=== PATIENT | female | born 1985 | race Two or more races ===

== ENCOUNTER 2020-09-26 15:17 | Outpatient (REF) | payer OTHER, SELFPAY ==
--- NOTE | ~2020-09-26 | XR_ITS ---
EXAMINATION: XR SHOULDER, RIGHT CLINICAL INFORMATION: Pain in right shoulder COMPARISON: None TECHNIQUE: 3 views of the right shoulder of the right shoulder. FINDINGS: There is no evidence of acute fracture or dislocation of the right shoulder. No calcific tendinitis. Glenohumeral joint unremarkable. Acromioclavicular joint unremarkable. No widening of the coracoclavicular space. XR/XR shoulder RT min 2V IMPRESSION: No significant bony abnormality of the right shoulder.
== END 2020-09-26 15:18 | disposition home or self-care (01) ==
LOC: HO.HMGCX 15:17
PROVIDERS: PCP Internal Medicine; Visit Provider Nurse Practitioner Family
DX: M25.519 Pain in unspecified shoulder (principal)
CPT/HCPCS: 73030

== ENCOUNTER 2020-12-15 13:43 | Outpatient (REF) | payer OTHER, SELFPAY ==
--- NOTE | ~2020-12-15 | XR_ITS ---
EXAMINATION: XR ANKLE, RIGHT CLINICAL INFORMATION: Right ankle pain/sprain COMPARISON: 02/19/2017 and 01/07/2020 TECHNIQUE: AP, lateral, and mortise views of the right ankle. FINDINGS: Bones have normal alignment and joint spaces are maintained. Soft tissues are unremarkable. No evidence of ankle joint effusion. No acute fracture or malalignment. There is a prominent Stieda process of the posterior talus. XR/XR ankle RT min 3V IMPRESSION: No acute osseous injury at the right ankle.
== END 2020-12-15 13:44 | disposition home or self-care (01) ==
LOC: HO.HMGCX 13:43
PROVIDERS: PCP Internal Medicine; Visit Provider Internal Medicine
DX: S93.401A Sprain of unspecified ligament of right ankle, initial encounter (principal)
CPT/HCPCS: 73610

== ENCOUNTER 2021-01-15 17:49 | Emergency (ER) | payer OTHER, SELFPAY ==
[2021-01-15 17:53] VITALS: BP 119/85; PULSE 97; RESP 18; TEMP 36.8; O2SAT 100; BMI 25.4
[2021-01-15] MEDS: Magnesium Sulfate/H2O 2 GM/50 ML PIGGYBACK IV (20:37)
[2021-01-15] MEDS: methylPREDNISolone Sod Succ 125 MG/2 ML VIAL IVPUSH (20:37)
[2021-01-15] MEDS: Albuterol/Iprat 2.5/0.5MG 3 ML AMPUL.NEB INHALE (20:40)
[2021-01-15] MEDS: Albuterol Sulfate (0.083%) 2.5 MG/3 ML VIAL.NEB 7.5 MG INHALE (20:40)
[2021-01-15 20:46] LABS: MANUAL DIFF FLAG NO
[2021-01-15 21:02] VITALS: PULSE 93; O2SAT 96
[2021-01-15 21:12] LABS: Basophils Absolute Auto 0.1 X10*3/uL (0.0-0.2); Basophils Percent Auto 0.4 % (0-2); Eosinophils Absolute Auto 0.3 X10*3/uL (0.0-0.4); Hematocrit 41.2 % (37-47); Hemoglobin 13.7 g/dl (12.0-16.0); Imm Gran Abs Auto 0.08 X10*3/uL (0.00-0.03); Imm Gran Pct Auto 0.6 % (0.0-0.4); Lymphocytes Absolute Auto 2.6 X10*3/uL (1.2-4.9); Lymphocytes Percent Auto 18.7 % (20-40); Mean Corpuscular HGB Conc 33.3 g/dl (31.0-35.0); Mean Corpuscular Hemoglobin 30.2 pg (27.0-33.0); Mean Corpuscular Volume 90.7 fL (80-98); Mean Platelet Volume 10.2 fL (9.4-12.3); Monocytes Absolute Auto 1.1 X10*3/uL (0.1-1.2); Monocytes Percent Auto 8.3 % (2-11); Neutrophils Absolute Auto 9.6 X10*3/uL (2.0-8.3); Platelet Count 397 X10*3/uL (160-400); Red Blood Count 4.54 X10*6/uL (4.20-5.50); Red Cell Distribution Width 12.7 % (11.0-16.0); White Blood Count 13.7 X10*3/uL (4.8-10.8)
[2021-01-15 21:13] LABS: COVID-19 Test Negative (Negative)
[2021-01-15 21:17] VITALS: BP 120/72; PULSE 102; RESP 20; TEMP 36.9; O2SAT 100
[2021-01-15 21:31] LABS: Anion Gap 12 (12-20); Blood Urea Nitrogen 9 mg/dL (9-16); Calcium 9.6 mg/dL (8.4-10.2); Carbon Dioxide 25 mmol/L (22-29); Chloride 104 mmol/L (96-108); Creatinine Clr Calc Pharmacy 97.3; Estimated Glomerular Filt Rate > 60; Glucose Random 102 mg/dL (60-115); Potassium 3.7 mmol/L (3.3-5.1); Sodium 137 mmol/L (135-145)
--- NOTE | 2021-01-15 21:55 | ED_ITS ---
HPI - Asthma General Chief Complaint: Asthma Stated Complaint: asthma Time Seen by Provider: 01/15/21 20:23 Source: patient Mode of arrival: ambulatory Limitations: no limitations History of Present Illness HPI Narrative: Patient history of asthma been short of breath for last 2 days got worse today using her inhaler every 2-3 hours without response history of similar episodes in the past MD complaint: asthma attack Related Data Previous Rx's Medication Instructions Recorded fluticasone 113mcg-salmeterol 1 inh INHALATION BID #3 ea 06/23/20 14mcg/actuation breath act,powder sensor cyclobenzaprine 10 mg tablet 10 mg PO BEDTIME PRN #90 tab 07/24/20 tizanidine 4 mg tablet 4 mg PO TID PRN 30 Days #90 tab 08/22/20 acetaminophen 500 mg tablet 500 mg PO Q6H PRN #120 tab 09/26/20 albuterol sulfate 2.5 mg INHALATION Q4H PRN 30 Days 11/01/20 #75 ml lidocaine 5 % topical patch 1 patch TOPICAL DAILY 30 Days #30 11/01/20 ea meloxicam 15 mg tablet 15 mg PO DAILY #10 tab 12/15/20 Allergies Allergy/AdvReac Type Severity Reaction Status Date / Time aspirin [ASPIRIN] Allergy Unknown ANAPHYLAXIS Unverified 04/26/20 19:17 Review of Systems Review of Systems: Constitutional : No Weight loss, No Fever, No Chills ENT/Mouth : No sore throat, No Rhinorrhea Eyes: No Eye Pain, No Swelling Cardiovascular : No Chest Pain, no palpitations Respiratory : No Cough, No Sputum, ++shortness of breath Gastrointestinal : no Nausea, No Vomiting, No Diarrhea, No abdominal Pain, no black stools Genitourinary : No Dysuria, No Urinary Frequency Musculoskeletal : No joint pain, No Myalgias, No Joint Swelling Skin : No Skin Lesions, No rash Neuro : No Weakness, No Numbness, No Dizziness, No Headache Psych : No Anxiety/Panic, No Depression Heme/Lymph: No Bruising, No Lymphadenopathy Endocrine : No Polyuria, No Polydipsia All other systems reviewed and are negative [facility] Social History Social History Alcohol intake: never Patient Tobacco Use Status: Never used Tobacco Use of substances other than those prescribed or required for medical reasons: No Advance Directives: No Advance Directives Information Provided: Yes Physical Exam Vital Signs: Vital Signs: Last Vital Signs Temp 98.5 F 01/15/21 21:17 Pulse 102 H 01/15/21 21:17 Resp 20 01/15/21 21:17 BP 120/72 01/15/21 21:17 Pulse Ox 100 01/15/21 21:17 Body Mass Index 25.4 Appearance: Alert. Oriented X3. No acute distress. Eyes: PERRLA, No Nystagmus ENT: Pharynx normal. Oral Mucosa moist Neck: Normal inspection. Neck supple. CVS: Normal heart rate and rhythm. Pulses normal. Respiratory: ++ respiratory distress. Equal air entry bilateral, ++ wheezing/rhonchi Abdomen: Soft and nontender. Bowel sounds are present, no mass palpable, no CVA tenderness Skin: Skin warm and dry. Normal skin color. Normal skin turgor. Extremities: No lower extremity edema. No calf tenderness Neuro: Oriented X 3. No motor deficit. No sensory deficit. MDM - Asthma MDM Narrative Medical decision making narrative: Patient with asthma COVID-19 negative feeling much better after nebulizing treatment and IV steroid and IV magnesium will discharge patient home Lab Data Attestation: I reviewed the patient's lab results. Result diagrams: 01/15/21 20:40 01/15/21 20:40 Labs: Lab Results 01/15/21 01/15/21 01/15/21 Range/Units 20:40 20:40 20:40 WBC 13.7 H (4.8-10.8) X10*3/uL RBC 4.54 (4.20-5.50) X10*6/uL Hgb 13.7 (12.0-16.0) g/dl Hct 41.2 (37-47) % MCV 90.7 (80-98) fL MCH 30.2 (27.0-33.0) pg MCHC 33.3 (31.0-35.0) g/dl RDW 12.7 (11.0-16.0) % Plt Count 397 (160-400) X10*3/uL MPV 10.2 (9.4-12.3) fL Immature Gran % (Auto) 0.6 H (0.0-0.4) % Neut % (Auto) 70.0 (45-73) % Lymph % (Auto) 18.7 L (20-40) % [place] % (Auto) 8.3 (2-11) % Eos % (Auto) 2.0 (0-4) % Baso % (Auto) 0.4 (0-2) % Lymph # (Auto) 2.6 (1.2-4.9) X10*3/uL [place] # (Auto) 1.1 (0.1-1.2) X10*3/uL Eos # (Auto) 0.3 (0.0-0.4) X10*3/uL Baso # (Auto) 0.1 (0.0-0.2) X10*3/uL Abs Immat Gran (auto) 0.08 H (0.00-0.03) X10*3/uL Absolute Neuts (auto) 9.6 H (2.0-8.3) X10*3/uL Absolute Nucleated RBC 0.000 (0.0-0.012) X10*3/uL Nucleated RBC % (auto) 0.0 (0.0-0.2) /100WBC Sodium 137 (135-145) mmol/L Potassium 3.7 (3.3-5.1) mmol/L Chloride 104 (96-108) mmol/L Carbon Dioxide 25 (22-29) mmol/L Anion Gap 12 (12-20) BUN 9 (9-16) mg/dL Creatinine 0.71 (0.5-1.4) mg/dL Estim Creat Clear Calc 97.3 Estimated GFR > 60 Random Glucose 102 (60-115) mg/dL Calcium 9.6 (8.4-10.2) mg/dL COVID-19 ([facility]) Negative (Negative) COVID-19 Clin Com See Note Discharge Plan Discharge Prescriptions: No Action fluticasone propion-salmeterol 113 mcg-14 mcg/actuation aero powdr breath act w/sensor 1 inh inhalation BID Qty: 3 RF: 3 cyclobenzaprine 10 mg tablet 10 mg PO BEDTIME PRN (Reason: muscle spasm) Qty: 90 RF: 1 tizanidine 4 mg tablet 4 mg PO TID PRN (Reason: muscle spasticity) 30 Days Qty: 90 RF: 2 lidocaine 5 % adhesive patch,medicated 1 patch topical DAILY 30 Days Qty: 30 RF: 5 albuterol sulfate 2.5 mg /3 mL (0.083 %) solution for nebulization 2.5 mg inhalation Q4H PRN (Reason: bronchospasm) 30 Days Qty: 75 RF: 6 acetaminophen 500 mg tablet 500 mg PO Q6H PRN (Reason: fever or pain) Qty: 120 RF: 2 meloxicam 15 mg tablet 15 mg PO DAILY Qty: 10 RF: 0
== END 2021-01-15 22:16 | disposition home or self-care (01) ==
PROVIDERS: Emergency Provider Internal Medicine; PCP Internal Medicine
DX: J45.901 Unspecified asthma with (acute) exacerbation (principal); Z20.822 Contact with and (suspected) exposure to COVID-19
CPT/HCPCS: 36415; 80048; 85025; 87635; 94644; 96365; 96374; 99284; J2930; J3475

== ENCOUNTER 2021-01-23 12:29 | Outpatient (REF) | payer OTHER, SELFPAY ==
--- NOTE | ~2021-01-23 | XR_ITS ---
EXAMINATION: XR CHEST CLINICAL INFORMATION: Asthma exacerbation COMPARISON: None TECHNIQUE: 2 views of the chest were obtained. FINDINGS: No significant abnormality is noted involving the heart, lungs, mediastinum, bony thorax or soft tissues. XR/XR chest 2V IMPRESSION: Unremarkable examination.
== END 2021-01-23 12:30 | disposition home or self-care (01) ==
LOC: HO.XRAY 12:29
PROVIDERS: PCP Internal Medicine; Visit Provider Nurse Practitioner Family
DX: J45.901 Unspecified asthma with (acute) exacerbation (principal)
CPT/HCPCS: 71046

== ENCOUNTER 2021-03-03 16:18 | Emergency (ER) | payer OTHER, SELFPAY ==
--- NOTE | ~2021-03-03 | XR_ITS ---
EXAMINATION: XR KNEE, LEFT CLINICAL INFORMATION: Injury. COMPARISON: None TECHNIQUE: Four views of the left knee. FINDINGS: No fracture or dislocation. No joint effusion. Joint spaces are maintained. XR/XR knee LT 3V IMPRESSION: No acute osseous abnormality of the left knee.
--- NOTE | ~2021-03-03 | XR_ITS ---
EXAMINATION: XR RIBS, RIGHT CLINICAL INFORMATION: Injury COMPARISON: None TECHNIQUE: 3 views of the right ribs were obtained. FINDINGS: Lungs are clear. No consolidation, pneumothorax, or pleural effusion. The cardiomediastinal silhouette and pulmonary vasculature are normal. Minimally displaced right lateral sixth rib fracture. There is a suggestion of some fracture callus. XR/XR ribs RT min 3V w CXR1V IMPRESSION: Minimally displaced right lateral sixth rib fracture. There is a suggestion of adjacent fracture callus suggesting a subacute fracture.
[2021-03-03 16:42] VITALS: BP 107/72; PULSE 87; RESP 16; TEMP 36.6; O2SAT 97; BMI 27.0
[2021-03-03] MEDS: LORazepam 1 MG TABLET PO (19:52)
[2021-03-03] MEDS: Acetaminophen 325 MG TABLET 650 MG PO (19:52)
[2021-03-03] MEDS: Ketorolac Tromethamine 15 MG/ML VIAL 30 MG IM (19:52)
[2021-03-03] MEDS: oxyCODONE HCl Immed Release 5 MG TABLET PO ×2 (19:53→21:01)
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
--- NOTE | 2021-03-03 21:34 | PC.NURSE ---
PT REPORTS PAIN TO CHEST WALL, NO COMPLAINT OF DYSPNEA.
== END 2021-03-03 21:35 | disposition home or self-care (01) ==
PROVIDERS: Emergency Provider Emergency Medicine; PCP Internal Medicine
DX: S83.92XA Sprain of unspecified site of left knee, initial encounter (principal); S22.31XA Fracture of one rib, right side, initial encounter for closed fracture; V43.52XA Car driver injured in collision with other type car in traffic accident, initial encounter; Y93.89 Activity, other specified; Y92.414 Local residential or business street as the place of occurrence of the external cause; Y99.9 Unspecified external cause status
CPT/HCPCS: 71101; 73562; 96372; 99283; 99284; J1885

== ENCOUNTER 2021-03-21 13:17 | Outpatient (REF) | payer OTHER, SELFPAY ==
--- NOTE | ~2021-03-21 | XR_ITS ---
EXAMINATION: XR RIBS, RIGHT CLINICAL INFORMATION: R07.81 - Pleurodynia. Known right rib fracture. COMPARISON: Chest and right RIBS 03/03/2021, chest radiographs 01/23/2021 TECHNIQUE: Frontal view chest and 3 views right ribs are obtained for a total of 4 views. FINDINGS: There are subacute fractures right anterolateral 5th and 6th ribs with visible fracture lines with adjacent callus formation. The fifth rib fracture is not clearly visible on the prior rib series. There is no acute appearing fracture or destructive process. Bony mineralization is normal. The lungs are clear. There is no pneumothorax, pleural reaction, airspace consolidation, or effusion. The heart is normal in size. The hilar and mediastinal contours are normal. No subcutaneous emphysema or free air beneath the diaphragm. XR/XR ribs RT min 3V w CXR1V IMPRESSION: 1. Subacute fractures involving the right anterolateral 5th and 6th ribs. 2. No pneumothorax, airspace opacity, or effusion.
== END 2021-03-21 13:18 | disposition home or self-care (01) ==
LOC: HO.HMGCX 13:17
PROVIDERS: PCP Internal Medicine; Visit Provider Hospitalist
DX: R07.81 Pleurodynia (principal)
CPT/HCPCS: 71101

== ENCOUNTER 2022-12-23 14:03 | Emergency (ER) | payer OTHER, SELFPAY ==
--- NOTE | ~2022-12-23 | XR_ITS ---
EXAMINATION: Right foot and ankle x-ray CLINICAL INFORMATION: Pain COMPARISON: Previous right ankle x-ray 2020 and right foot x-ray from 2016 TECHNIQUE: 3 views of the right foot and 3 views of the right ankle FINDINGS: Right foot: Bone alignment is normal. No fracture or dislocation. Joint spaces are normal. Soft tissues are normal. Right ankle: Bone alignment is normal. No fracture or dislocation. The ankle mortise is normal. Prominent Stieda process of the posterior talus similar to previous exams. Soft tissues are normal. XR/XR ankle RT min 3V IMPRESSION: No fracture or dislocation.
--- NOTE | ~2022-12-23 | XR_ITS ---
EXAMINATION: Right foot and ankle x-ray CLINICAL INFORMATION: Pain COMPARISON: Previous right ankle x-ray 2020 and right foot x-ray from 2016 TECHNIQUE: 3 views of the right foot and 3 views of the right ankle FINDINGS: Right foot: Bone alignment is normal. No fracture or dislocation. Joint spaces are normal. Soft tissues are normal. Right ankle: Bone alignment is normal. No fracture or dislocation. The ankle mortise is normal. Prominent Stieda process of the posterior talus similar to previous exams. Soft tissues are normal. XR/XR foot RT min 3V IMPRESSION: No fracture or dislocation.
[2022-12-23 14:23] VITALS: BP 106/58; PULSE 75; RESP 16; TEMP 36.9; O2SAT 96; BMI 26.4
--- NOTE | 2022-12-23 14:23 | ED_ITS ---
HPI - General Adult General Chief complaint: Extremity Injury, Lower Stated complaint: R Swollen Ankle No Injury Time Seen by Provider: 12/23/22 14:41 Source: patient, RN notes reviewed and old records reviewed Mode of arrival: ambulatory History of Present Illness HPI narrative: 37-year-old female with a past medical history of asthma presenting to the ED complaining of right ankle/foot pain s/p twisting injury down a couple stairs yesterday morning. Denies falling all the way to ground, head trauma or LOC. Reports pain worsen after standing on feet all day at work. Denies numbness, tingling, weakness, fever, injury to other area. Onset (ago): day(s) Related Data Previous Rx's Medication Instructions Recorded cyclobenzaprine 10 mg tablet 10 mg PO BEDTIME PRN muscle spasm 07/24/20 #90 tabs lidocaine 5 % topical patch 1 patch topical DAILY 30 days #30 11/01/20 ea ibuprofen 600 mg tablet 600 mg PO Q6H PRN pain #20 tabs 03/03/21 ibuprofen 600 mg tablet 600 mg PO Q6H PRN pain #30 tabs 03/03/21 diclofenac sodium 75 mg 75 mg PO BID PRN pain #20 tabs 03/21/21 tablet,delayed release fluticasone propionate 115 2 puff inhalation Q12H 90 days #12 06/27/21 mcg-salmeterol 21 mcg/actuation grams HFA inhaler (Advair HFA) albuterol sulfate 90 mcg/actuation 2 inh inhalation Q4-6H PRN 10/21/21 breath activated powder inhaler shortness of breath or wheezing #1 (ProAir RespiClick) ea azithromycin 250 mg tablet See Rx Instructions PO .COMPLEX #6 10/24/21 tabs prednisone 20 mg tablet 60 mg PO DAILY #9 tabs 03/16/22 loratadine 10 mg tablet (Allergy 10 mg PO DAILY PRN allergy 04/13/22 Relief (loratadine)) symptoms 90 days #90 tabs albuterol sulfate 2.5 mg/3 mL 2.5 mg (3 mL) inhalation Q4-6H PRN 06/28/22 (0.083 %) solution for nebulization shortness of breath or wheezing #180 mL acetaminophen 500 mg tablet 500 mg PO Q6H PRN fever or pain 07/24/22 #120 tabs albuterol sulfate 90 mcg/actuation 2 puff PO Q6H PRN shortness of 08/20/22 aerosol inhaler (Ventolin HFA) breath or wheezing #18 ea tizanidine 4 mg tablet 4 mg PO TID PRN for muscle spasm 10/27/22 #90 tabs cyclobenzaprine 5 mg tablet 5 mg PO Q8H PRN pain (scale score 12/23/22 7-10) 5 days #14 tabs trazodone 50 mg tablet 50 mg PO BEDTIME PRN sleep 90 days 12/23/22 #90 tabs Allergies Allergy/AdvReac Type Severity Reaction Status Date / Time aspirin [ASPIRIN] Allergy Unknown ANAPHYLAXIS Verified 12/23/22 14:28 Review of Systems Review of Systems: Constitutional: No Fever, No Chills ENT/Mouth: No Ear Pain, No Nasal Congestion, No sore throat, No Rhinorrhea, No Swallowing Difficulty Cardiovascular: No Chest Pain, No SOB Respiratory: No Cough Gastrointestinal: No Nausea, No Vomiting, No Abdominal pain Musculoskeletal: + joint pain, No Myalgias, + Joint Swelling Skin: No Skin Lesions, No rash Neuro: No Weakness, No Numbness, No Paresthesias Yes all other systems are reviewed and are negative Constitutional: Constitutional: Reports as per [facility] Past Medical History Attestation statement: The following information was validated with the patient. Source: old records reviewed Surgical History History of section Family History Family History Mother No problems noted. Father No problems noted. Social History Social History Housing: Apartment Alcohol intake: never Patient Tobacco Use Status: Never used Tobacco Second Hand Smoke Exposure: No Advance Directives: No service: No Current occupational status: employed Physical Exam ED Vital Signs: Vital Signs - 24 hr 12/23/22 14:23 Temperature 98.5 F Pulse Rate 75 Respiratory Rate 16 Blood Pressure 106/58 L Pulse Oximetry 96 Oxygen Delivery Method Room Air BMI result Body Mass Index 26.4 Const General: cooperative, healthy appearing and no acute distress Orientation/consciousness: patient oriented x3 Limitations: no limitations HENMT Head: Yes normal to inspection and Yes atraumatic Ears: hearing grossly normal bilaterally General nose exam: Normal external nose present Face and sinus: Yes normal facial exam Eyes General: appearance normal, both eyes and all related structures EOM: EOMs intact bilaterally Neck Neck: Yes normal visual inspection and Yes no meningeal signs Resp Effort & Inspection: normal respiratory effort and no respiratory distress Cardio Rate: regular rate Peripheral pulses: Peripheral pulses 2+ throughout Skin Rashes: no rashes Wounds: no wounds Neuro General: patient oriented x3, tone normal and no meningeal signs Gait exam (Neuro): Normal gait present Extrem Other: + right lateral ankle/foot with mild swelling. Tender to palpation. No erythema/warmth or ecchymosis. No crepitus. NV intact Course Course Course Narrative: This is an RME: Additional HPI, ROS, PE not included below will be deferred to primary provider. 37 y/o F, hx of asthma, presenting to the emergency department with complaints of right ankle pain since yesterday. States that she tripped on her stairs yesterday and has had pain and swelling in her right foot and ankle since. On exam, pt has TTP on the right lateral mallelous and right 3-4th metatarsals with moderate edema noted in this area. DP pulses 2+, sensation intact. VSS. Pt is ambulatory with steady gait. Plan: Right foot and ankle x-rays ordered. XR foot RT min 3V IMPRESSION: No fracture or dislocation.? XR ankle RT min 3V IMPRESSION: No fracture or dislocation.? > Results discussed with patient, supplied with crutches an Aircast. Discussed worrisome signs and symptoms and strict return precautions, and when to return to the emergency department. They verbalized understanding and feel safe for discharge at this time. -patient requesting tizanidine, states PCP use prescribed to her, will send with Flexeril. Procedures Orthopedic Splinting/Casting Injury #1: Side: right Lower Extremity Injury Location: ankle and foot Lower Extremity Immobilizer: AirCast Other Orthopedic Equipment: crutches Medical Decision Making Medical Decision Making MDM Narrative: 37-year-old female with a past medical history of asthma presenting to the ED complaining of right ankle/foot pain s/p twisting injury down a couple stairs yesterday morning. On exam vital signs stable, NAD, nontoxic appearing with physical exam as noted above with right lateral malleolar and lateral foot tenderness with mild swelling. Neurovascularly intact. No erythema/warmth or crepitus. Concern for sprain versus fracture. Low suspicion for septic joint/arthritis or cellulitis Plan: X-rays Please refer to course for remaining clinical decision making, interpretation of labs/imaging results, and discussions with consultants and/or family members. Differential Diagnosis Differential Diagnoses: The differential diagnosis associated with the presentation includes As above Radiology Impression Discussion of test interpretation with radiology: I have reviewed the radiologist's reading. External Record Review External record reviewed: Inpatient record, Office record, Outpatient record, Prior outpatient labs, Prior outpatient radiology, Primary care record and Outside ED record Tests considered The following testing was considered but not selected: As above Discharge Plan Discharge Clinical Impression: Ankle sprain Patient Disposition: Home, Self-Care Instructions: Ankle Sprain (DC) Additional Instructions: Your x-rays do not show a fracture. you likely sprained her ankle. wear Aircast as needed for comfort and stability Use crutches as needed Ice Elevate Take Tylenol & Motrin for pain/swelling Flexeril is a muscle relaxer, take at night as it makes you drowsy, do not drive, drink alcohol, or operate machinery while taking it If symptoms persist or worsen, pain becomes unbearable, you developed urinary retention or incontinence, or weakness return to the ED Follow-up with her doctor Is symptoms persist or worsen return to the ED Prescriptions: New cyclobenzaprine 5 mg tablet 5 mg PO Q8H PRN (Reason: pain (scale score 7-10)) 5 Days Qty: 14 0RF No Action cyclobenzaprine 10 mg tablet 10 mg PO BEDTIME PRN (Reason: muscle spasm) Qty: 90 1RF lidocaine 5 % adhesive patch,medicated 1 patch topical DAILY 30 Days Qty: 30 5RF Rx Instructions: leave on most painful area for up to 12 hrs Advair HFA 115-21 mcg/actuation HFA aerosol inhaler 2 puff inhalation Q12H 90 Days Qty: 12 2RF ProAir RespiClick 90 mcg/actuation aerosol powdr breath activated 2 inh inhalation Q4-6H PRN (Reason: shortness of breath or wheezing) Qty: 1 2RF prednisone 20 mg tablet 60 mg PO DAILY Qty: 9 0RF loratadine [Allergy Relief (loratadine)] 10 mg tablet 10 mg PO DAILY PRN (Reason: allergy symptoms) 90 Days Qty: 90 1RF albuterol sulfate 2.5 mg /3 mL (0.083 %) solution for nebulization 2.5 mg inhalation Q4-6H PRN (Reason: shortness of breath or wheezing) Qty: 180 0RF acetaminophen 500 mg tablet 500 mg PO Q6H PRN (Reason: fever or pain) Qty: 120 2RF albuterol sulfate [Ventolin HFA] 90 mcg/actuation HFA aerosol inhaler 2 puff PO Q6H PRN (Reason: shortness of breath or wheezing) Qty: 18 1RF tizanidine 4 mg tablet 4 mg PO TID PRN (Reason: for muscle spasm) Qty: 90 2RF trazodone 50 mg tablet 50 mg PO BEDTIME PRN (Reason: sleep) 90 Days Qty: 90 2RF ibuprofen 600 mg tablet 600 mg PO Q6H PRN (Reason: pain) Qty: 20 0RF ibuprofen 600 mg tablet 600 mg PO Q6H PRN (Reason: pain) Qty: 30 0RF diclofenac sodium 75 mg tablet,delayed release (DR/EC) 75 mg PO BID PRN (Reason: pain) Qty: 20 0RF azithromycin 250 mg tablet See Rx Instructions PO .COMPLEX Qty: 6 0RF Rx Instructions: take 500 mg today (day 1), then 250 mg for 4 days (days 2-5) PO Referrals: Brittany Ernandez MD [Primary Care Provider] - Stand Alone Forms: Work/School Release
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
--- OUTSIDE RECORDS SUMMARY | 2022-12-23 14:51 | XMS_ITS | Continuity of Care Document ---
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 Role Phone Not on Staff, PCP Primary Care Physician Unavail able Encounter [facility] [place] Date(s): 01/22/21 - 01/23/[address] [address]- Discharge Disposition: A-D/C Walkout Attending Physician: Not on Staff, Attending MD Admitting Physician: Not on Staff, Admitting MD Referring Physician: Not on Staff, Referring [...] Date: 05/18/15 Stop Date: 06/01/15 Status: Ordered Vital Signs Most recent to oldest [Reference Range]: 1 2 Oxygen Saturation [94-100 %] 100 % (01/22/21 8:15 PM) 99 % (01/22/21 8:10 PM) Pulse Rate [55-90 bpm] 88 bpm (01/22/21 8:15 PM) 101 bpm *H* (01/22/21 8:10 PM) Blood Pressure [90-138/55-84 mm Hg] 123/ 75mm Hg (01/22/21 8:15 PM) Respiratory Rate [16-30 br/min] 18 br/mi n (01/22/21 8:15 PM) 18 br/min (01/22/21 8:10 PM) Temperature [96.8-100.4 DegF] 98.9 DegF (01/22/21 8:15 PM) Mode of Delivery (Oxygen) Room air (01/22/21 8:15 PM) Room air (01/22/21 8:10 PM) Blood pressure sites Arm, left (01/22/21 8:15 PM) Temperature Route Oral (01/22/21 8:15 PM)
== END 2022-12-23 15:56 | disposition home or self-care (01) ==
PROVIDERS: Emergency Provider Student in an Organized Health Care Education/Training Program; PCP Internal Medicine
DX: S93.401A Sprain of unspecified ligament of right ankle, initial encounter (principal); W10.9XXA Fall (on) (from) unspecified stairs and steps, initial encounter; Y93.89 Activity, other specified; Y92.038 Other place in apartment as the place of occurrence of the external cause; Y99.9 Unspecified external cause status
CPT/HCPCS: 73610; 73630; 99282; 99283

== ENCOUNTER 2023-03-04 10:11 | Outpatient (AMB) | payer OTHER, SELFPAY ==
--- NOTE | 2023-03-04 11:01 | AM.OFFWIN_ITS ---
Intake Vital Signs 03/04/23 11:03 Height 5 ft 1 in BP 100/60 Blood Pressure Location Lt brachial Position Sitting Pulse 74 Pulse Source Pulse Oximeter Temp 96.8 F Temp Source Temporal Artery Scan Pulse Oximetry (%) 98 Oxygen Delivery Method Room Air Intake Visit Reasons: EP, Vomiting Intake Note: Pt is here c/o having diarrhea and vomiting since last Thursday. Pt states it is now affecting her asthma. Patient Tobacco Use Status: Never used Tobacco Allergies aspirin [ASPIRIN] Allergy (Unknown, Verified 03/04/23 11:02) ANAPHYLAXIS Do you need a note to return to daycare/school/sports/work: No HPI EP, Vomiting HPI Details Patient presents today with 2 primary complaints. She states that she has had a GI virus over the last 4 days. In she states that she started with diarrhea about 4 days ago, which lasted about 2 days. She also has had some were episodes of vomiting over the last 4 days, the last of which was this morning. She is starting to feel better, however continues to have a little bit of nausea. She denies any dizziness. She reports her daughter had a similar GI virus last week. 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 She has been using Ventolin p.r.n., however is requesting a few days of prednisone, as this usually is helpful when she has asthma exacerbations. [facility] Surgical History History of section Family History Mother No problems noted. Father No problems noted. Social History Housing: Apartment Alcohol intake: never Patient Tobacco Use Status: Never used Tobacco Second Hand Smoke Exposure: No service: No Current occupational status: employed Review of Systems Const All systems reviewed & are unremarkable except as noted in HPI and below Physical Exam Vital Signs: Last Vital Signs Temp 96.8 F 03/04/23 11:03 Pulse 74 03/04/23 11:03 BP 100/60 03/04/23 11:03 Pulse Ox 98 03/04/23 11:03 Oxygen Delivery Method Room Air 03/04/23 11:03 Const General: cooperative and no acute distress HEENT Head: Yes normal to inspection Neck Neck: Yes no lymphadenopathy Resp Effort & Inspection: normal respiratory effort and able to speak in complete sentences Auscultation: clear to auscultation bilaterally Cardio Jugular venous distension: no JVD Palpation: normal PMI Rate: regular rate Rhythm: regular rhythm GI Inspection: Yes normal to inspection Palpation (GI): Soft to palpation and No hepatosplenomegaly present Auscultation: normal bowel sounds Skin General skin exam: no rashes or lesions noted Extrem General: Yes capillary refill normal Psych Appearance: grossly normal Mental Status: mental status grossly normal Speech and movement: Normal speech and movement present Assessment & Plan Assessment & Plan (1) Nausea: Code(s): R11.0 - Nausea Plan: Patient seems to be due to take recovering from a GI virus. I will prescribe her some Zofran as she does have some ongoing nausea. I advised she continue to hydrate, and advance her diet as tolerated. (2) Asthma exacerbation: Code(s): J45.901 - Unspecified asthma with (acute) exacerbation Qualifiers: Asthma severity: mild Asthma persistence: intermittent Qualified Code(s): J45.21 - Mild intermittent asthma with (acute) exacerbation Plan: She has a history of asthma, and has been using her Ventolin inhaler. 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 I advised she wear a mask at work if possible. I will also prescribe her a few days of prednisone as this has helped her in the past. If she develops any shortness of breath, or increasing asthma symptoms, she should return to the clinic or the emergency department for evaluation. She agrees to plan. Medications: New ondansetron 4 mg PO Q8H PRN 9 tabs 0RF nausea and vomiting 3 days R11.0 - Nausea Changed From prednisone 60 mg (3 x 20 mg) PO DAILY 9 tabs 0RF To prednisone 20 mg PO BID 3 days 6 tabs 0RF Coding Level of Care Code Est Pt Level 3 (48592) Diagnoses Nausea R11.0 Asthma exacerbation J45.21 Asthma severity: mild Asthma persistence: intermittent
[2023-03-04 11:03] VITALS: BP 100/60; PULSE 74; TEMP 36; O2SAT 98
== END 2023-03-04 11:49 | disposition home or self-care (01) ==
PROVIDERS: PCP Internal Medicine; Visit Provider Nurse Practitioner Family
DX: R11.0 Nausea (principal); J45.21 Mild intermittent asthma with (acute) exacerbation
CPT/HCPCS: 99213

== ENCOUNTER 2023-04-03 23:44 | Emergency (ER) | payer OTHER, SELFPAY ==
[2023-04-03 23:57] VITALS: BP 90/69; PULSE 69; RESP 18; TEMP 37.2; O2SAT 100; BMI 21.8
[2023-04-04 00:17] LABS: IDNOW Serial# 08D9AD1C; Strep A Nucleic Acid Negative (Negative)
[2023-04-04 00:31] LABS: COVID-19 Test Negative (Negative); IDNOW Serial# BCCEAD1C
== END 2023-04-04 02:25 | disposition left against medical advice (07) ==
PROVIDERS: Emergency Provider Emergency Medicine; PCP Internal Medicine
DX: J02.9 Acute pharyngitis, unspecified (principal); R50.9 Fever, unspecified; R51.9 Headache, unspecified; Z20.822 Contact with and (suspected) exposure to COVID-19
CPT/HCPCS: 87635; 87651; 99281; 99283

== ENCOUNTER 2023-04-12 21:20 | Emergency (ER) | payer OTHER, SELFPAY ==
[2023-04-12 21:31] VITALS: BP 115/89; PULSE 96; RESP 18; TEMP 36.8; O2SAT 98; BMI 24.2
--- NOTE | 2023-04-13 00:32 | ED.GENADULT ---
HPI - General Adult General Chief complaint: General Medical Stated complaint: Nail falling off Time Seen by Provider: 04/12/23 23:31 Source: patient Mode of arrival: ambulatory Limitations: no limitations History of Present Illness HPI narrative: Patient with artificial nails, of right middle finger which came off partially when her cat jumped on her Related Data Previous Rx's Medication Instructions Recorded cyclobenzaprine 10 mg tablet 10 mg PO BEDTIME PRN muscle spasm 07/24/20 #90 tabs lidocaine 5 % topical patch 1 patch topical DAILY 30 days #30 11/01/20 ea ibuprofen 600 mg tablet 600 mg PO Q6H PRN pain #20 tabs 03/03/21 ibuprofen 600 mg tablet 600 mg PO Q6H PRN pain #30 tabs 03/03/21 diclofenac sodium 75 mg 75 mg PO BID PRN pain #20 tabs 03/21/21 tablet,delayed release fluticasone propionate 115 2 puff inhalation Q12H 90 days #12 06/27/21 mcg-salmeterol 21 mcg/actuation grams HFA inhaler (Advair HFA) albuterol sulfate 90 mcg/actuation 2 inh inhalation Q4-6H PRN 10/21/21 breath activated powder inhaler shortness of breath or wheezing #1 (ProAir RespiClick) ea azithromycin 250 mg tablet See Rx Instructions PO .COMPLEX #6 10/24/21 tabs loratadine 10 mg tablet (Allergy 10 mg PO DAILY PRN allergy 04/13/22 Relief (loratadine)) symptoms 90 days #90 tabs albuterol sulfate 2.5 mg/3 mL 2.5 mg (3 mL) inhalation Q4-6H PRN 06/28/22 (0.083 %) solution for nebulization shortness of breath or wheezing #180 mL acetaminophen 500 mg tablet 500 mg PO Q6H PRN fever or pain 07/24/22 #120 tabs cyclobenzaprine 5 mg tablet 5 mg PO Q8H PRN pain (scale score 12/23/22 7-10) 5 days #14 tabs trazodone 50 mg tablet 50 mg PO BEDTIME PRN sleep 90 days 12/23/22 #90 tabs tizanidine 4 mg tablet 4 mg PO TID PRN for muscle spasm 02/11/23 #90 tabs ondansetron 4 mg disintegrating 4 mg PO Q8H PRN nausea and 03/04/23 tablet vomiting 3 days #9 tabs prednisone 20 mg tablet 20 mg PO BID 3 days #6 tabs 03/07/23 albuterol sulfate 90 mcg/actuation 2 puff PO Q6H PRN shortness of 04/05/23 aerosol inhaler (Ventolin HFA) breath or wheezing #18 ea Allergies Allergy/AdvReac Type Severity Reaction Status Date / Time aspirin [ASPIRIN] Allergy Unknown ANAPHYLAXIS Verified 04/03/23 23:56 Review of Systems Review of Systems: Yes all other systems are reviewed and are negative [facility] Past Medical History Surgical History History of section Family History Family History Mother No problems noted. Father No problems noted. Social History Social History Housing: Apartment Alcohol intake: never Patient Tobacco Use Status: Never used Tobacco Smoked in Last 30 Days: No Second Hand Smoke Exposure: No Use of substances other than those prescribed or required for medical reasons: No Advance Directives: No Advance Directives Information Provided: No service: No Current occupational status: employed Physical Exam ED Vital Signs: Vital Signs - 24 hr 04/12/23 21:31 Temperature 98.3 F Pulse Rate 96 Respiratory Rate 18 Blood Pressure 115/89 Pulse Oximetry 98 Oxygen Delivery Method Room Air BMI result Body Mass Index 24.2 Extrem Hand/finger images: 1. Partial removal of additional right middle finger no laceration or bleeding Medications Administered Discontinued Medications Generic Name Dose Route Start Last Admin Trade Name Freq PRN Reason Stop Dose Admin Ibuprofen 600 mg 04/12/23 23:41 04/12/23 23:58 Ibuprofen 600 Mg Tablet PO 04/12/23 23:42 Not Given ONCE ONE Medical Decision Making Medical Decision Making MDM Narrative: Patient's right middle finger artificial nail was cut using clippers without any significant pain patient felt much better after Discharge Plan Discharge Clinical Impression: Avulsion of nail of right middle finger Patient Disposition: Home, Self-Care Instructions: Nail Avulsion (ED) Additional Instructions: Local Care as advised Tylenol/ibuprofen for pain Prescriptions: No Action cyclobenzaprine 10 mg tablet 10 mg PO BEDTIME PRN (Reason: muscle spasm) Qty: 90 1RF lidocaine 5 % adhesive patch,medicated 1 patch topical DAILY 30 Days Qty: 30 5RF Rx Instructions: leave on most painful area for up to 12 hrs Advair HFA 115-21 mcg/actuation HFA aerosol inhaler 2 puff inhalation Q12H 90 Days Qty: 12 2RF ProAir RespiClick 90 mcg/actuation aerosol powdr breath activated 2 inh inhalation Q4-6H PRN (Reason: shortness of breath or wheezing) Qty: 1 2RF loratadine [Allergy Relief (loratadine)] 10 mg tablet 10 mg PO DAILY PRN (Reason: allergy symptoms) 90 Days Qty: 90 1RF albuterol sulfate 2.5 mg /3 mL (0.083 %) solution for nebulization 2.5 mg inhalation Q4-6H PRN (Reason: shortness of breath or wheezing) Qty: 180 0RF acetaminophen 500 mg tablet 500 mg PO Q6H PRN (Reason: fever or pain) Qty: 120 2RF trazodone 50 mg tablet 50 mg PO BEDTIME PRN (Reason: sleep) 90 Days Qty: 90 2RF tizanidine 4 mg tablet 4 mg PO TID PRN (Reason: for muscle spasm) Qty: 90 2RF prednisone 20 mg tablet 20 mg PO BID 3 Days Qty: 6 0RF albuterol sulfate [Ventolin HFA] 90 mcg/actuation HFA aerosol inhaler 2 puff PO Q6H PRN (Reason: shortness of breath or wheezing) Qty: 18 1RF ibuprofen 600 mg tablet 600 mg PO Q6H PRN (Reason: pain) Qty: 20 0RF ibuprofen 600 mg tablet 600 mg PO Q6H PRN (Reason: pain) Qty: 30 0RF cyclobenzaprine 5 mg tablet 5 mg PO Q8H PRN (Reason: pain (scale score 7-10)) 5 Days Qty: 14 0RF diclofenac sodium 75 mg tablet,delayed release (DR/EC) 75 mg PO BID PRN (Reason: pain) Qty: 20 0RF azithromycin 250 mg tablet See Rx Instructions PO .COMPLEX Qty: 6 0RF Rx Instructions: take 500 mg today (day 1), then 250 mg for 4 days (days 2-5) PO ondansetron 4 mg tablet,disintegrating 4 mg PO Q8H PRN (Reason: nausea and vomiting) 3 Days Qty: 9 0RF Interventions: ED Discharge Assessment Last Done: 04/12/23 23:57 Discharge Date/Time: 04/12/23 23:58
== END 2023-04-12 23:58 | disposition home or self-care (01) ==
PROVIDERS: Emergency Provider Internal Medicine; PCP Internal Medicine
DX: S61.302A Unspecified open wound of right middle finger with damage to nail, initial encounter (principal); X58.XXXA Exposure to other specified factors, initial encounter; Y93.9 Activity, unspecified; Y92.9 Unspecified place or not applicable; Y99.9 Unspecified external cause status
CPT/HCPCS: 99284

== ENCOUNTER 2023-09-23 13:45 | Emergency (ER) | payer OTHER, SELFPAY ==
[2023-09-23 14:29] VITALS: BP 108/61; PULSE 78; RESP 18; TEMP 36.6; O2SAT 95; BMI 24.4
[2023-09-23 16:31] LABS: MANUAL DIFF FLAG NO
[2023-09-23 16:36] LABS: Basophils Percent Auto 0.3 % (0-2); Eosinophils Percent Auto 0.2 % (0-4); Hematocrit 43.4 % (37.0-47.0); Hemoglobin 14.6 g/dl (12.0-16.0); Imm Gran Abs Auto 0.24 X10*3/uL (0.00-0.03); Imm Gran Pct Auto 2.1 % (0.0-0.4); Lymphocytes Absolute Auto 1.4 X10*3/uL (1.2-4.9); Lymphocytes Percent Auto 12.3 % (20-40); Mean Corpuscular HGB Conc 33.6 g/dl (31.0-35.0); Mean Corpuscular Hemoglobin 30.5 pg (27.0-33.0); Mean Corpuscular Volume 90.6 fL (80.0-98.0); Mean Platelet Volume 9.8 fL (9.4-12.3); Monocytes Absolute Auto 0.1 X10*3/uL (0.1-1.2); Neutrophils Absolute Auto 9.8 x10*3/uL (2.0-8.3); Neutrophils Percent Auto 84.1 % (45-73); Platelet Count 368 X10*3/uL (160-400); Red Blood Count 4.79 X10*6/uL (4.20-5.50); Red Cell Distribution Width 12.5 % (11.0-16.0); White Blood Count 11.7 X10*3/uL (4.8-10.8)
[2023-09-23 16:46] LABS: Alanine Aminotransferase 40 U/L (0-31); Albumin Level 4.1 g/dL (3.5-5.0); Alkaline Phosphatase 78 U/L (39-117); Anion Gap 11 (12-20); Aspartate Amino Transferase 23 U/L (5-31); Bilirubin Direct 0.2 mg/dL (0.0-0.5); Bilirubin Total 0.6 mg/dL (0.0-1.0); Blood Urea Nitrogen 7 mg/dL (9-16); Calcium 9.3 mg/dL (8.4-10.2); Carbon Dioxide 24 mmol/L (22-29); Chloride 107 mmol/L (96-108); Creatinine Clr Calc Pharmacy 90.4; Estimated Glomerular Filt Rate > 60; Glucose Random 145 mg/dL (60-115); Lipase 32 U/L (8-78); Potassium 3.8 mmol/L (3.3-5.1); Sodium 138 mmol/L (135-145); Total Protein 7.4 g/dL (6.5-8.0)
[2023-09-23 16:48] LABS: COVID-19 Test Negative (Negative); IDNOW Serial# 08D9AD1C; IDNOW Serial# 9DB6401D; Influenza A Negative (Negative); Influenza B2 Negative (Negative)
--- NOTE | 2023-09-23 19:41 | ED_ITS ---
HPI - Nausea/Vomiting/Diarrhea General Chief complaint: Nausea/Vomiting/Diarrhea Stated complaint: Vomiting Diarrhea Time Seen by Provider: 09/23/23 19:26 Source: patient Mode of arrival: ambulatory Limitations: no limitations History of Present Illness HPI Narrative: 38 yo female with PMH of asthma here with c/o intermittent n/v and belching that tastes gross for the past few weeks hx of h pylori and it reminds her of that. she has appointment with PCP on Thursday. The patient has no symptoms today other than a loose stool MD elicited complaint: nausea, vomiting, diarrhea and abdominal pain Pertinent past history: other (h pylori gastritis) Onset (ago): week(s) (few) Description of vomiting: watery Associated nausea: Yes Associated abdominal pain: Yes Location of pain: epigastric Pain consistency: intermittent Severity: mild Quality: aching Exacerbating factors: eating Relieving factors: none Context: other (reminds her of h pyloir) Associated symptoms: loss of appetite, malaise and nausea/vomiting Related Data Previous Rx's Medication Instructions Recorded omeprazole 20 mg capsule,delayed 20 mg PO DAILY 90 days #90 caps 06/11/20 release cyclobenzaprine 10 mg tablet 10 mg PO BEDTIME PRN muscle spasm 07/24/20 #90 tabs lidocaine 5 % topical patch 1 patch topical DAILY 30 days #30 11/01/20 ea albuterol sulfate 90 mcg/actuation 2 puff inhalation Q4-6H PRN 01/15/21 aerosol inhaler (ProAir HFA) shortness of breath or wheezing #8.5 grams ibuprofen 600 mg tablet 600 mg PO Q6H PRN pain #20 tabs 03/03/21 ibuprofen 600 mg tablet 600 mg PO Q6H PRN pain #30 tabs 03/03/21 diclofenac sodium 75 mg 75 mg PO BID PRN pain #20 tabs 03/21/21 tablet,delayed release fluticasone propionate 115 2 puff inhalation Q12H 90 days #12 06/27/21 mcg-salmeterol 21 mcg/actuation grams HFA inhaler (Advair HFA) albuterol sulfate 90 mcg/actuation 2 inh inhalation Q4-6H PRN 10/21/21 breath activated powder inhaler shortness of breath or wheezing #1 (ProAir RespiClick) ea azithromycin 250 mg tablet See Rx Instructions PO .COMPLEX #6 10/24/21 tabs loratadine 10 mg tablet (Allergy 10 mg PO DAILY PRN allergy 04/13/22 Relief (loratadine)) symptoms 90 days #90 tabs albuterol sulfate 2.5 mg/3 mL 2.5 mg (3 mL) inhalation Q4-6H PRN 06/28/22 (0.083 %) solution for nebulization shortness of breath or wheezing #180 mL acetaminophen 500 mg tablet 500 mg PO Q6H PRN fever or pain 07/24/22 #120 tabs cyclobenzaprine 5 mg tablet 5 mg PO Q8H PRN pain (scale score 12/23/22 7-10) 5 days #14 tabs trazodone 50 mg tablet 50 mg PO BEDTIME PRN sleep 90 days 12/23/22 #90 tabs ondansetron 4 mg disintegrating 4 mg PO Q8H PRN nausea and 03/04/23 tablet vomiting 3 days #9 tabs albuterol sulfate 90 mcg/actuation 2 puff PO Q6H PRN shortness of 06/16/23 aerosol inhaler (Ventolin HFA) breath or wheezing #18 ea prednisone 20 mg tablet 20 mg PO BID 3 days #6 tabs 07/21/23 tizanidine 4 mg tablet 4 mg PO TID PRN for muscle spasm 08/11/23 #90 tabs prednisone 20 mg tablet 20 mg PO BID 5 days #10 tabs 09/10/23 omeprazole 20 mg capsule,delayed 20 mg PO BID #60 caps 09/23/23 release Allergies Allergy/AdvReac Type Severity Reaction Status Date / Time aspirin [ASPIRIN] Allergy Unknown ANAPHYLAXIS Verified 09/23/23 14:29 Review of Systems 2 Review of Systems: Constitutional : No Weight loss, No Fever, No Chills ENT/Mouth : No sore throat, No Rhinorrhea Eyes: No Swelling, No Redness Cardiovascular : No Chest Pain, No SOB, NoEdema Respiratory : No Cough, No Sputum, No Wheezing Gastrointestinal : Positive Nausea, Positive Vomiting, positive Diarrhea, positive abdominal Pain, No Hematochezia, No Melena Genitourinary : No Dysuria, No Urinary Frequency, No Hematuria, No Urgency Musculoskeletal : No joint pain, No Myalgias, No Joint Swelling Skin : No Skin Lesions, No rash Neuro : No Weakness, No Numbness, No Dizziness, No Headache Psych : No Anxiety/Panic, No Depression Heme/Lymph: No Bruising, No Lymphadenopathy Endocrine : No Polyuria, No Polydipsia All other systems reviewed and are negative. Gastrointestinal: Gastrointestinal: Reports nausea PMFSH Past Medical History Attestation statement: The following information was validated with the patient. Source: old records reviewed Medical History Asthma exacerbation Asthma Surgical History History of section Family History Family History Mother No problems noted. Father No problems noted. Social History Social History Housing: Apartment Alcohol intake: never Patient Tobacco Use Status: Never used Tobacco Second Hand Smoke Exposure: No Advance Directives: No Advance Directives Information Provided: No service: No Current occupational status: employed Physical Exam 2 Vital Signs: Vital Signs: Last Vital Signs Temp 97.5 F 09/23/23 20:00 Pulse 80 09/23/23 20:00 Resp 16 09/23/23 20:00 BP 113/68 09/23/23 20:00 Pulse Ox 98 09/23/23 20:00 O2 Del Method Room Air 09/23/23 20:00 BMI result Body Mass Index 24.4 Appearance: Alert. Oriented X3. No acute distress. Eyes: Pupils equal, round and reactive to light. ENT: Pharynx normal. Neck: Normal inspection. Neck supple. CVS: Normal heart rate and rhythm. Pulses normal. Respiratory: No respiratory distress. Breath sounds normal. Abdomen: Soft and nontender. Skin: Skin warm and dry. Normal skin color. Normal skin turgor. Extremities: No lower extremity edema. No calf ttp Neuro: Oriented X 3. No motor deficit. No sensory deficit. Medical Decision Making Medical Decision Making MDM Narrative: 38 yo female PMH Of h pylori here with intermittent abdominal pain and nausea vomiting with loose stools. At this time will need basic labs, GI cocktail and given benign abdominal exam doubt GB pathology or appendicitis. She is tolerating PO. Has appointment with PCP on Thursday. Plan for PPI and PCP follow up Differential Diagnosis Differential Diagnoses: The differential diagnosis associated with the presentation includes PUD, gastritis, h pylori Admission/Observation Consideration of admission/observation: Escalation of care including admission/observation considered clinically looks well and labs reassuring Lab Data MDM Lab Attestation statement: I reviewed the patient's lab results. 09/23/23 16:26 09/23/23 16:26 Labs: Lab Results 09/23/23 Range/Units 16:26 WBC 11.7 H (4.8-10.8) X10*3/uL RBC 4.79 (4.20-5.50) X10*6/uL Hgb 14.6 (12.0-16.0) g/dl Hct 43.4 (37.0-47.0) % MCV 90.6 (80.0-98.0) fL MCH 30.5 (27.0-33.0) pg MCHC 33.6 (31.0-35.0) g/dl RDW 12.5 (11.0-16.0) % Plt Count 368 (160-400) X10*3/uL MPV 9.8 (9.4-12.3) fL Immature Gran % (Auto) 2.1 H (0.0-0.4) % Neut % (Auto) 84.1 H (45-73) % Lymph % (Auto) 12.3 L (20-40) % Jefferson % (Auto) 1.0 L (2-11) % Eos % (Auto) 0.2 (0-4) % Baso % (Auto) 0.3 (0-2) % Lymph # (Auto) 1.4 (1.2-4.9) X10*3/uL Jefferson # (Auto) 0.1 (0.1-1.2) X10*3/uL Eos # (Auto) 0.0 (0.0-0.4) X10*3/uL Baso # (Auto) 0.0 (0.0-0.2) X10*3/uL Abs Immat Gran (auto) 0.24 H (0.00-0.03) X10*3/uL Absolute Neuts (auto) 9.8 H (2.0-8.3) x10*3/uL Absolute Nucleated RBC 0.000 (0.0-0.012) X10*3/uL Nucleated RBC % (auto) 0.0 (0.0-0.2) /100WBC Sodium 138 (135-145) mmol/L Potassium 3.8 (3.3-5.1) mmol/L Chloride 107 (96-108) mmol/L Carbon Dioxide 24 (22-29) mmol/L Anion Gap 11 L (12-20) BUN 7 L (9-16) mg/dL Creatinine 0.73 (0.5-1.4) mg/dL Estim Creat Clear Calc 90.4 Estimated GFR > 60 Random Glucose 145 H (60-115) mg/dL Calcium 9.3 (8.4-10.2) mg/dL Total Bilirubin 0.6 (0.0-1.0) mg/dL Direct Bilirubin 0.2 (0.0-0.5) mg/dL AST 23 (5-31) U/L ALT 40 H (0-31) U/L Alkaline Phosphatase 78 (39-117) U/L Total Protein 7.4 (6.5-8.0) g/dL Albumin 4.1 (3.5-5.0) g/dL Lipase 32 (8-78) U/L COVID-19 (OLMAN) Negative (Negative) COVID-19 Clin Com See Note Influenza Type A (KATELIN) Negative (Negative) Influenza Type B (KATELIN) Negative (Negative) Influenza A & B Note See Note Independent Historian Clinical information obtained from an independent historian. History obtained from or confirmed by: Spouse External Record Review External record reviewed: Inpatient record Prescription Management I considered prescription management with: Other Discharge Plan Discharge Clinical Impression: Gastritis Qualifiers: Gastritis type: unspecified gastritis Chronicity: acute Gastritis bleeding: w [facility] bleeding Qualified Code(s): K29.00 - Acute gastritis without bleeding Patient Disposition: Home, Self-Care Instructions: Gastritis (ED) Additional Instructions: bland diet, avoid spicy or greasy foods. okay to take tylenol but right now avoid motrin, ibuprofen, aspirin, aleve, naprosyn follow up with your doctor Thursday as planned return for worsening pain, fevers, inability to eat or drink, black or blood stools Prescriptions: New omeprazole 20 mg capsule,delayed release(DR/EC) 20 mg PO BID Qty: 60 0RF No Action omeprazole 20 mg capsule,delayed release(DR/EC) 20 mg PO DAILY 90 Days Qty: 90 3RF cyclobenzaprine 10 mg tablet 10 mg PO BEDTIME PRN (Reason: muscle spasm) Qty: 90 1RF lidocaine 5 % adhesive patch,medicated 1 patch topical DAILY 30 Days Qty: 30 5RF Rx Instructions: leave on most painful area for up to 12 hrs albuterol sulfate [ProAir HFA] 90 mcg/actuation HFA aerosol inhaler 2 puff inhalation Q4-6H PRN (Reason: shortness of breath or wheezing) Qty: 8.5 0RF Advair HFA 115-21 mcg/actuation HFA aerosol inhaler 2 puff inhalation Q12H 90 Days Qty: 12 2RF ProAir RespiClick 90 mcg/actuation aerosol powdr breath activated 2 inh inhalation Q4-6H PRN (Reason: shortness of breath or wheezing) Qty: 1 2RF loratadine [Allergy Relief (loratadine)] 10 mg tablet 10 mg PO DAILY PRN (Reason: allergy symptoms) 90 Days Qty: 90 1RF albuterol sulfate 2.5 mg /3 mL (0.083 %) solution for nebulization 2.5 mg inhalation Q4-6H PRN (Reason: shortness of breath or wheezing) Qty: 180 0RF acetaminophen 500 mg tablet 500 mg PO Q6H PRN (Reason: fever or pain) Qty: 120 2RF trazodone 50 mg tablet 50 mg PO BEDTIME PRN (Reason: sleep) 90 Days Qty: 90 2RF albuterol sulfate [Ventolin HFA] 90 mcg/actuation HFA aerosol inhaler 2 puff PO Q6H PRN (Reason: shortness of breath or wheezing) Qty: 18 1RF prednisone 20 mg tablet 20 mg PO BID 3 Days Qty: 6 0RF tizanidine 4 mg tablet 4 mg PO TID PRN (Reason: for muscle spasm) Qty: 90 2RF prednisone 20 mg tablet 20 mg PO BID 5 Days Qty: 10 0RF ibuprofen 600 mg tablet 600 mg PO Q6H PRN (Reason: pain) Qty: 20 0RF ibuprofen 600 mg tablet 600 mg PO Q6H PRN (Reason: pain) Qty: 30 0RF cyclobenzaprine 5 mg tablet 5 mg PO Q8H PRN (Reason: pain (scale score 7-10)) 5 Days Qty: 14 0RF diclofenac sodium 75 mg tablet,delayed release (DR/EC) 75 mg PO BID PRN (Reason: pain) Qty: 20 0RF azithromycin 250 mg tablet See Rx Instructions PO .COMPLEX Qty: 6 0RF Rx Instructions: take 500 mg today (day 1), then 250 mg for 4 days (days 2-5) PO ondansetron 4 mg tablet,disintegrating 4 mg PO Q8H PRN (Reason: nausea and vomiting) 3 Days Qty: 9 0RF
[2023-09-23 20:00] VITALS: BP 113/68; PULSE 80; RESP 16; TEMP 36.4; O2SAT 98
[2023-09-23] MEDS: Ondansetron ODT 4 MG TAB.RAPDIS TRANSLINGU (20:20)
[2023-09-23] MEDS: Magnesium Hydrox/Alum Hydrox 30 ML ORAL.SUSP 15 ML PO (20:20)
[2023-09-23] MEDS: Omeprazole 20 MG CAPSULE.DR PO (20:20)
[2023-09-23] MEDS: Lidocaine HCl Viscous 2 % 15 ML SOLUTION MUCOUS MEM (20:21)
== END 2023-09-23 20:37 | disposition home or self-care (01) ==
PROVIDERS: Physician Assistant Medical; Emergency Provider Emergency Medicine; PCP Internal Medicine
DX: K29.00 Acute gastritis without bleeding (principal); Z11.52 Encounter for screening for COVID-19
CPT/HCPCS: 80048; 80076; 83690; 85025; 87502; 87635; 99283; 99284

== ENCOUNTER 2023-09-28 12:59 | Outpatient (AMB) | payer OTHER, SELFPAY ==
[2023-09-28 13:14] VITALS: BP 110/80; BMI 24.7
--- NOTE | 2023-09-28 13:14 | A.OFFPC_ITS ---
Vital Signs 09/28/23 13:14 Height 5 ft 2 in Weight 135 lb BMI 24.7 BP 110/80 Blood Pressure Location Lt brachial Position Sitting Intake Visit Reasons: Office visit Intake Note: Patient here for arthritis, ? bacteria in stomach, paperwork Attendant Coin Operated Laundry Required: No Accompanied by: Spouse Allergies aspirin [ASPIRIN] Allergy (Unknown, Verified 09/28/23 13:43) ANAPHYLAXIS Medication List - Last Reconciled 09/28/23 by Brittany Nation MD acetaminophen 500 mg PO Q6H PRN albuterol sulfate 2.5 mg (3 mL) inhalation Q4-6H PRN albuterol sulfate 90 mcg/actuation (Ventolin HFA) 2 puffs PO Q6H PRN diclofenac sodium 75 mg PO BID PRN omeprazole 20 mg PO BID tizanidine 4 mg PO TID PRN trazodone 50 mg PO BEDTIME PRN 90 days Tobacco use date assessed: 09/28/23 Dental Screening Dental Screen Date: 09/28/23 Did you have a dental visit in the last 12 months?: No Did you have a dental problem in the last 6 months where you did not have access to dental care?: No Was dental information given to patient?: Patient has dentist HPI HPI Comments History of Present Illness Details This is a 38-year-old female with asthma polyarthralgia that comes today accompanied by for hospital discharge follow-up with discharge date 09/23/2023 due to epigastric pain associated with nausea that started few days ago. She has history of H pylori in the past and had the same symptoms. Feels slightly improved now. No change in bowel habits. Asthma stable with rescue inhaler less than once a month. Has diffuse showing pain and would like to see Rheumatology. [facility] Medical History (Updated 09/28/23 @ 14:13 by Brittany Nation MD) Asthma Asthma exacerbation Surgical History History of section Family History Mother No problems noted. Father No problems noted. Social History Housing: Apartment Alcohol intake: never Patient Tobacco Use Status: Never used Tobacco e-Cigarette/Vaping Use: Never Used Second Hand Smoke Exposure: No service: No Current occupational status: unemployed Cognitive needs: No Hearing needs: No Vision needs: No Questionnaire PHQ-9 Over the last 2 weeks, how often have you been bothered by any of the following problems? 1. Little interest or pleasure in doing things: not at all 2. Feeling down, depressed, or hopeless: not at all 3. Trouble falling or staying asleep, or sleeping too much: not at all 4. Feeling tired or having little energy: not at all 5. Poor appetite or overeating: not at all 6. Feeling bad about yourself - or that you are a failure or have let yourself or your family down: not at all 7. Trouble concentrating on things, such as reading the newspaper or watching television: not at all 8. Moving or speaking so slowly that other people could have noticed. Or the opposite - being so fidgety or restless that you have been moving around a lot more than usual: not at all 9. Thoughts that you would be better off or of hurting yourself in some way: not at all Total score: 0 Depression Screening Interpretation: Negative Depression Screening Done: Yes 27280 - PHQ-9 Billing: Yes Source: Developed by Drs. Andrea Murray, Leilani Kyle, Reyes Perez and colleagues, with an educational aiyana from [employer]. Thrive Questionnaire Date Thrive assessed: 09/28/23 I am a: Patient What is your living situation today?: I have a steady place to live Within the past 12 months, did the food you bought not last and you didn't have the money to get more?: Never true Within the past 12 months, did you worry whether your food would run out before you got money to buy more?: Never true Do you have trouble paying for medicines?: No Do you have trouble getting transportation to medical appointments?: No Do you have trouble paying your heating and electricity bill?: No Do you have trouble taking care of your child, family member or friend?: No Do you have trouble with day-to-day activities such as bathing, preparing meals, shopping, managing finances, etc.?: No Are you currently unemployed and looking for a job?: No Are you interested in more education?: No Please select the resources that you would like help with: None Currently or been in a relationship where the following occur: no concerns reported THRIVE Score: 0 AUDIT C Alcohol Use Questionnaire (AUDIT-C) 1. How often do you have a drink containing alcohol?: Monthly or less 2. How many drinks containing alcohol do you have on a typical day when you are drinking?: 1 or 2 3. How often do you have six or more drinks on one occasion?: Never Total Score: 1 ELSA-7 AMB Questionnaire ELSA-7 Date ELSA - 7 assessed: 09/28/23 Feeling nervous, anxious, or on edge: 1 = Several days Not being able to stop or control worryin = Several days Worrying too much about different things: 1 = Several days Trouble relaxin = Not at all Being so restless that it is hard to sit still: 1 = Several days Becoming easily annoyed or irritable: 0 = Not at all Feeling afraid as if something awful might happen: 1 = Several days Total ELSA-7 score (0-4 normal; 5-9 mild; 10-14 moderate; 15-21 severe): 5 Source: Developed by Drs. Andrea Murray, Leilani Kyle, Reyes Perez and colleagues, with an educational aiyana from [employer]. ELSA-7 Assessment Billing ELSA-7 Assessment Tool: ELSA-7 Assessment 34928 Review of Systems Const All systems reviewed & are unremarkable except as noted in HPI and below Eyes Reports no additional complaints, Denies change in vision and Denies other visual disturbances Card Denies chest pain at rest, Denies chest pain with activity, Denies edema, Denies irregular heart rhythm, Denies claudication, Denies dyspnea, Denies dyspnea on exertion, Denies orthopnea, Denies paroxysmal nocturnal dyspnea and Denies slow heart rate Resp Denies cough, Denies dyspnea and Denies dyspnea on exertion GI Denies abdominal pain, Denies change in bowel habits, Denies excessive flatus, Denies nausea and Denies vomiting Denies urinary incontinence, Denies urinary hesitancy and Denies urinary urgency Musc Denies abnormal gait, Denies atrophy, Denies deformity and Denies limited range of motion Skin/Breast Denies bleeding lesions, Denies changing lesions and Denies rash Neuro Denies abnormal gait and Denies lack of coordination Physical exam (Primary Care) Vital Signs: Last Vital Signs BP 110/80 09/28/23 13:14 BMI result Body Mass Index 24.7 Tobacco/Smoking Status: Tobacco use Status Tobacco use date assessed 09/28/23 09/28/23 13:23 Patient Tobacco Use Status Never used Tobacco 09/28/23 13:23 e-Cigarette/Vaping Use Never Used 09/28/23 13:23 PHQ-9: PHQ-9 Score PHQ-9: Total score 0 09/28/23 13:41 Depression Screening Interpretation: Negative Thrive Assessment: Date of Thrive Assessment Date Thrive assessed 09/28/23 09/28/23 13:23 Currently or been in a relationship where the following occur: no concerns reported Eyes General: appearance normal, both eyes and all related structures Eyelids: Yes eyelids normal Conjunctivae: conjunctivae normal Neck Neck: Yes normal visual inspection and Yes supple Resp Effort & Inspection: normal respiratory effort Auscultation: clear to auscultation bilaterally Cardio Jugular venous distension: no JVD Rate: regular rate Rhythm: regular rhythm Heart sounds: S1 normal heart sound present and S2 normal heart sound present Extrem General: Yes full ROM Assessment and Plan Assessment & Plan (1) Hospital discharge follow-up: Code(s): Z09 - Encounter for follow-up examination after completed treatment for conditions other than malignant neoplasm Plan: Labs were unremarkable. Discharge date 09/23/2023. Epigastric pain has improved. (2) Epigastric pain: Code(s): R10.13 - Epigastric pain Plan: test ordered to rule out H pylori. (3) Polyarthralgia: Code(s): M25.50 - Pain in unspecified joint Plan: Referred to rheumatology. (4) Asthma: Code(s): J45.909 - Unspecified asthma, uncomplicated Qualifiers: Asthma severity: unspecified severity Asthma persistence: unspecified Asthma complication type: unspecified Qualified Code(s): J45.909 - Unspecified asthma, uncomplicated Plan: Use rescue inhaler as needed. Orders: Orders H pylori Ag Stool Today A04.8 - Other specified bacterial intestinal infections Referrals Rheumatology Referral M25.50 - Pain in unspecified joint Medications: Refilled acetaminophen 500 mg PO Q6H PRN 120 tabs 2RF fever or pain diclofenac sodium 75 mg PO BID PRN 20 tabs 0RF pain Coding Level of Care Code TCM Mod MDM <= 7 Days Diagnoses Hospital discharge follow-up Z09 Epigastric pain R10.13 Polyarthralgia M25.50 Asthma, unspecified asthma severity, unspecified whether complicated, unspecified whether persistent J45.909 Asthma severity: unspecified severity Asthma persistence: unspecified Asthma complication type: unspecified Additional Codes ELSA-7 Assessment Billing - ELSA-7 Assessment Tool: ELSA-7 Assessment 72343 ([id number]) Time Spent (min) 23
== END 2023-09-28 13:50 | disposition home or self-care (01) ==
PROVIDERS: PCP Internal Medicine; Visit Provider Internal Medicine
DX: R10.13 Epigastric pain (principal); M25.50 Pain in unspecified joint; J45.909 Unspecified asthma, uncomplicated; Z79.899 Other long term (current) drug therapy
CPT/HCPCS: 99214

== ENCOUNTER 2023-09-28 14:04 | Outpatient (REF) | payer OTHER, SELFPAY | END 2023-09-28 14:05 | disposition home or self-care (01) | LOC: HO.LAB 14:04 | PROVIDERS: Visit Provider Internal Medicine | DX: Z13.89 Encounter for screening for other disorder (principal) ==

== ENCOUNTER 2023-09-29 15:03 | Outpatient (REF) | payer OTHER, SELFPAY | END 2023-09-29 15:04 | disposition home or self-care (01) | LOC: HO.LNP 15:03 | PROVIDERS: Visit Provider Internal Medicine | DX: A04.8 Other specified bacterial intestinal infections (principal) | CPT/HCPCS: 87338 ==

== ENCOUNTER 2023-10-22 13:05 | Outpatient (REF) | payer OTHER, SELFPAY ==
[2023-10-22 15:38] LABS: Rheumatoid Factor 17.5 IU/mL (<15.0)
[2023-10-22 15:42] LABS: C Reactive Protein < 0.04 mg/dL (< or = 0.50)
[2023-10-22 15:53] LABS: Erythrocyte Sedimentation Rate 3 MM/HR (0-20)
[2023-10-23 04:23] LABS: HBS Num1 121.54 mIU/mL (0-7.99); HBc Num1 0.09 S/CO (0.00-0.79); HBsAGNum1 0.43 S/CO (0.00-0.99); Hepatitis A Antibody IgM 0.19 Index (0-0.79); Hepatitis B Core Antibody Nonreactive (Nonreactive); Hepatitis B Surface Antigen Negative (Negative); ~HepC Num1 13.98 S/CO (0.00-0.79); ~Hepatitis A Antibody IgM Nonreactive (Nonreactive); ~Hepatitis B Surface Antibody REACTIVE (Nonreactive); ~Hepatitis C Antibody Reactive (Nonreactive)
[2023-10-23 14:49] LABS: Anti DNA DS Antibody <1 IU/mL; SM/Ribonucleoprotein Ab <1.0 NEG AI (<1.0 NEG); Smith Protein <1.0 NEG AI (<1.0 NEG)
[2023-10-23 14:57] LABS: Cyclic Citrullinated Peptide <16 UNITS
[2023-10-24 16:33] LABS: Anti Nuclear Antibody Screen NEGATIVE (NEGATIVE)
[2023-10-25 06:44] LABS: TS Negative Control Passed; TS Panel A 0; TS Panel B 0; TS Positive Control Passed; TSpotTB Negative (Negative)
[2023-10-28 22:28] LABS: IgA 207 mg/dL (47-310); IgG 1292 mg/dL (600-1640); IgM 139 mg/dL (50-300)
== END 2023-10-22 13:06 | disposition home or self-care (01) ==
LOC: HO.LAB 13:05
PROVIDERS: PCP Internal Medicine; Visit Provider Nurse Practitioner Family
DX: M25.50 Pain in unspecified joint (principal); M25.519 Pain in unspecified shoulder; Z11.9 Encounter for screening for infectious and parasitic diseases, unspecified
CPT/HCPCS: 36415; 82550; 82784; 84550; 85652; 86038; 86140; 86200; 86225; 86235; 86431; 86481; 86704; 86706; 86709; 86803; 87340; 99202

== ENCOUNTER 2023-10-22 13:05 | Outpatient (AMB) | payer OTHER, SELFPAY ==
--- NOTE | 2023-10-22 13:19 | MHC.OFFVIS ---
Intake Vital Signs 10/22/23 13:28 Height 5 ft 2 in Weight 144 lb 13.499 oz BMI 26.5 BP 132/80 Blood Pressure Location Rt brachial Position Sitting Pulse 65 Pulse Source Pulse Oximeter Temp 97.7 F Temp Source Skin Pulse Oximetry (%) 99 Oxygen Delivery Method Room Air Intake Visit Reasons: joint pain Intake Note: New patient, internally referred, presents to office today for joint pain. 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 Torre, 38-year-old female with asthma, polyarthralgia, accompanied by is here today evaluation of polyarthralgia. Per patient diagnosed with rheumatoid arthritis some years ago was started on prednisone and diclofenac but has been lost to follow-up due to changes in her doctor's. She reports that the pain is helped by prednisone and she can feel the difference when she is off of prednisone and the diclofenac alone is not sufficient. She has been especially in her hands her shoulders and her knees. Her joints are very stiff in the mornings and it takes a while for her to feel very loose. Her mother and sister has RA Patient states she has no longer taking trazodone makes her very tired in the mornings so we will discontinue. [facility] Medical History (Updated 10/22/23 @ 17:40 by CARLOS Rae) Seropositive rheumatoid arthritis of multiple joints Screening examination for infectious disease Asthma Asthma exacerbation Surgical History History of section Family History Mother No problems noted. Father No problems noted. Social History Housing: Apartment Alcohol intake: never Patient Tobacco Use Status: Never used Tobacco e-Cigarette/Vaping Use: Never Used Second Hand Smoke Exposure: No service: No Current occupational status: unemployed Cognitive needs: No Hearing needs: No Vision needs: No Review of Systems Const All systems reviewed & are unremarkable except as noted in HPI and below Physical Exam Vital Signs: Last Vital Signs Temp 97.7 F 10/22/23 13:28 Pulse 65 10/22/23 13:28 BP 132/80 10/22/23 13:28 Pulse Ox 99 10/22/23 13:28 Oxygen Delivery Method Room Air 10/22/23 13:28 BMI result Body Mass Index 26.5 APPEARANCE: Patient in no acute distress EYES no redness, normal EARS:? External ear normal. NOSE/SINUS:? Airflow through both nares, no nasal discharge, no bleeding THROAT:? Oral mucosa moist, no ulcerations NECK:? No thyromegaly or masses, no adenopathy, trachea midline. HEART:? Regular rhythm, S1-S2 heard, no murmurs, rubs or gallops. LUNG:? Clear to percussion and auscultation EXTREMITIES:? No edema, no calf tenderness, normal peripheral pulses. NEURO:? Oriented and alert x3.? No focal weakness.? Reflexes symmetric.? Gait normal. SKIN:? There are no skin lesions evident. No objective signs of Raynaud's phenomenon. JOINT EXAM: Cervical Spine:.? Full range of motion without pain; no tenderness. Thoracic Spine:.? No scoliosis.? No tenderness on palpation. Lumbar Spine:.? Alignment normal.? Full range of motion without pain, no tenderness. Chest Wall:.? No tenderness, swelling, increased warmth or erythema. Hands:.? Normal pain-free range of motion without tenderness, swelling, increased warmth or erythema. 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 Wrists:.? Normal pain-free range of motion without tenderness, swelling, increased warmth or erythema. Elbows:. Normal pain-free range of motion without tenderness, swelling, increased warmth or erythema. Shoulders:.?? Full range of motion without pain. No tenderness, weakness, swelling, increased warmth or erythema. Hips:.? Full range of motion without pain. Hip bursa:.? No tenderness. Knees:.?? Normal pain-free range of motion without tenderness, swelling, increased warmth or erythema.? There is no effusion or crepitation Ankles:.? Normal pain-free range of motion without tenderness, swelling, increased warmth or erythema. Feet:.? Normal pain-free range of motion without tenderness, swelling, increased warmth or erythema. Tender points:? No tenderness to digital palpation at the occiput, trapezius, second rib, lateral epicondyle, knees, greater trochanter and gluteal area bilaterally. Results Reviewed Results Reviewed: Laboratory Tests 09/23/23 16:26 WBC 11.7 H RBC 4.79 Hgb 14.6 Hct 43.4 Creatinine 0.73 AST 23 ALT 40 H Foot and ankle x-rays done December 2022 had no adverse findings Assessment & Plan Assessment & Plan (1) Polyarthralgia: Code(s): M25.50 - Pain in unspecified joint (2) Shoulder pain: Code(s): M25.519 - Pain in unspecified shoulder Qualifiers: Chronicity: chronic Laterality: bilateral Qualified Code(s): M25.511 - Pain in right shoulder; M25.512 - Pain in left shoulder; G89.29 - Other chronic pain (3) Seropositive rheumatoid arthritis of multiple joints: Code(s): M05.79 - Rheumatoid arthritis with rheumatoid factor of multiple sites without organ or systems involvement Plan #Seropositive RA/polyarthralgia: Mrs. Torre 38-year-old female here for evaluation of polyarthralgia that is improved on prednisone. Given her story is likely the patient has an inflammatory arthritis. Today's lab studies did show positive rheumatoid factor. She has tenderness and swelling to the MCP and PIP joints of her hands, behind her heels the Achilles tendons are sore, and across the MTP joints. Also tenderness and sore nest to her elbows at the lateral epicondyles and along the bilateral shoulder anterior GH joint line. I have prescribed her prednisone today. The patient does not recall being started on a DMARD so I will send her a prescription to start on methotrexate 6 pills q.week and, folic acid 1 mg q.d. #Long-term use: She does have a mildly elevated at AST at 48 however will still start the methotrexate and monitor for more increase in her liver enzymes. Should this happen we will stop the methotrexate and consider a bio DMARD such as Humira. Follow-up 8 weeks I spent 50 minutes reviewing history, evaluating patient and documenting. Orders: Orders Anti DNA DS Antibody 10/22/23 M25.50 - Pain in unspecified joint, M25.519 - Pain in unspecified shoulder T Spot TB 10/22/23 M25.50 - Pain in unspecified joint, Z11.9 - Encounter for screening for infectious and parasitic diseases, unspecified Erythrocyte Sedimentation Rate 10/22/23 M25.50 - Pain in unspecified joint, M25.519 - Pain in unspecified shoulder NAIN Reflex Titer and Pattern 10/22/23 M25.50 - Pain in unspecified joint, M25.519 - Pain in unspecified shoulder Anti Extractable Nuclear Ag 10/22/23 M25.50 - Pain in unspecified joint, M25.519 - Pain in unspecified shoulder C Reactive Protein 10/22/23 M25.50 - Pain in unspecified joint, M25.519 - Pain in unspecified shoulder Creatine Kinase Total 10/22/23 M25.50 - Pain in unspecified joint, M25.519 - Pain in unspecified shoulder Immunoglobulins,IgG IgA IgM 10/22/23 M25.50 - Pain in unspecified joint, M25.519 - Pain in unspecified shoulder Hepatitis A,B,C Profile 10/22/23 M25.50 - Pain in unspecified joint, Z11.9 - Encounter for screening for infectious and parasitic diseases, unspecified Uric Acid 10/22/23 M25.50 - Pain in unspecified joint, M25.519 - Pain in unspecified shoulder Rheumatoid Factor 10/22/23 M25.50 - Pain in unspecified joint, M25.519 - Pain in unspecified shoulder Cyclic Citrullinated Peptide 10/22/23 M25.50 - Pain in unspecified joint, M25.519 - Pain in unspecified shoulder Medications: New prednisone 10 mg (2 x 5 mg) PO DIRECTED 120 tabs 0RF M25.50 - Pain in unspecified joint prednisone 10 mg (2 x 5 mg) PO DAILY 120 tabs 0RF M25.50 - Pain in unspecified joint Discontinued trazodone Discontinued Reason: Patient no longer taking 50 mg PO BEDTIME 90 days PRN 90 tabs 2RF sleep Coding Level of Care Code New Pt Level 4 (10806) Diagnoses Polyarthralgia M25.50 Chronic pain of both shoulders M25.511; M25.512; G89.29 Chronicity: chronic Laterality: bilateral Seropositive rheumatoid arthritis of multiple joints M05.79
[2023-10-22 13:28] VITALS: BP 132/80; PULSE 65; TEMP 36.5; O2SAT 99; BMI 26.5
== END 2023-10-22 14:10 | disposition home or self-care (01) ==
PROVIDERS: PCP Internal Medicine; Visit Provider Nurse Practitioner Family
DX: M25.50 Pain in unspecified joint (principal); M25.511 Pain in right shoulder; M25.512 Pain in left shoulder; G89.29 Other chronic pain; M05.79 Rheumatoid arthritis with rheumatoid factor of multiple sites without organ or systems involvement
CPT/HCPCS: 99204

== ENCOUNTER 2024-02-04 13:53 | Outpatient (REF) | payer MEDICAID, SELFPAY ==
[2024-02-04 14:06] LABS: MANUAL DIFF FLAG NO
[2024-02-04 15:17] LABS: Basophils Absolute Auto 0.1 X10*3/uL (0.0-0.2); Basophils Percent Auto 0.8 % (0-2); Eosinophils Absolute Auto 0.3 X10*3/uL (0.0-0.4); Eosinophils Percent Auto 2.3 % (0-4); Hematocrit 40.6 % (37.0-47.0); Hemoglobin 13.4 g/dl (12.0-16.0); Imm Gran Abs Auto 0.32 X10*3/uL (0.00-0.03); Imm Gran Pct Auto 2.8 % (0.0-0.4); Lymphocytes Absolute Auto 3.3 X10*3/uL (1.2-4.9); Lymphocytes Percent Auto 28.6 % (20-40); Mean Corpuscular Hemoglobin 31.3 pg (27.0-33.0); Mean Corpuscular Volume 94.9 fL (80.0-98.0); Mean Platelet Volume 10.5 fL (9.4-12.3); Neutrophils Absolute Auto 6.4 x10*3/uL (2.0-8.3); Neutrophils Percent Auto 56.5 % (45-73); Platelet Count 366 X10*3/uL (160-400); Red Blood Count 4.28 X10*6/uL (4.20-5.50); Red Cell Distribution Width 13.5 % (11.0-16.0); White Blood Count 11.4 X10*3/uL (4.8-10.8)
[2024-02-04 15:32] LABS: Alanine Aminotransferase 44 U/L (0-31); Albumin Level 3.8 g/dL (3.5-5.0); Alkaline Phosphatase 55 U/L (39-117); Anion Gap 12 (12-20); Aspartate Amino Transferase 40 U/L (5-31); Bilirubin Total 0.8 mg/dL (0.0-1.0); Blood Urea Nitrogen 9 mg/dL (9-16); Calcium 8.9 mg/dL (8.4-10.2); Carbon Dioxide 27 mmol/L (22-29); Chloride 104 mmol/L (96-108); Estimated Glomerular Filt Rate > 60; Glucose Random 131 mg/dL (60-115); Potassium 3.6 mmol/L (3.3-5.1); Sodium 139 mmol/L (135-145); Total Protein 6.7 g/dL (6.5-8.0)
[2024-02-04 16:21] LABS: Erythrocyte Sedimentation Rate 4 MM/HR (0-20)
== END 2024-02-04 13:54 | disposition home or self-care (01) ==
LOC: HO.LAB 13:53
PROVIDERS: PCP Internal Medicine; Visit Provider Student in an Organized Health Care Education/Training Program
DX: M05.79 Rheumatoid arthritis with rheumatoid factor of multiple sites without organ or systems involvement (principal); Z79.631 Long term (current) use of antimetabolite agent
CPT/HCPCS: 36415; 80053; 85025; 85652; 86140

== ENCOUNTER 2024-02-25 13:39 | Outpatient (AMB) | payer OTHER, SELFPAY ==
[2024-02-25 13:46] VITALS: BP 118/82; BMI 27.8
--- NOTE | 2024-02-25 13:46 | MHC.PC.OV ---
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 Accompanied by: Self / Same As Patient Allergies aspirin [ASPIRIN] Allergy (Unknown, Verified 02/25/24 13:58) ANAPHYLAXIS Medication List - Last Reconciled 02/25/24 by Brittany Nation MD acetaminophen 500 mg PO Q6H PRN albuterol sulfate 2.5 mg (3 mL) inhalation Q4-6H PRN albuterol sulfate 90 mcg/actuation (Ventolin HFA) 2 puffs PO Q6H PRN diclofenac sodium 75 mg PO BID PRN folic acid 1 mg PO DAILY methotrexate sodium 12.5 mg (5 x 2.5 mg) PO QWEEK omeprazole 20 mg PO BID 90 days prednisone 10 mg (2 x 5 mg) PO DAILY tizanidine 4 mg PO TID PRN Tobacco use date assessed: 09/28/23 Dental Screening Dental Screen Date: 09/28/23 HPI HPI Comments History of Present Illness Details This is a 38 year female with rheumatoid arthritis that for her physical exam. Rheumatoid arthritis follow by Rheumatology. Pap smears are up-to-date. Has transaminitis that will be monitor but most likely is due to methotrexate. Denies any jaundice. 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 Seropositive rheumatoid arthritis of multiple joints Screening examination for infectious disease Asthma Asthma exacerbation Surgical History History of section Family History (Updated 02/25/24 @ 14:05 by Brittany Nation MD) Mother Rheumatoid arthritis Hypertension Father Hypertension Diabetes mellitus Maternal Grandmother Uterine cancer Social History (Updated 02/25/24 @ 14:05 by Brittany Nation MD) Housing: Apartment Alcohol intake: former Patient Tobacco Use Status: Former Tobacco user e-Cigarette/Vaping Use: Never Used Second Hand Smoke Exposure: No service: No Current occupational status: unemployed Cognitive needs: No Hearing needs: No Vision needs: No Questionnaire Thrive Questionnaire Date Thrive assessed: 09/28/23 ELSA-7 AMB Questionnaire ELSA-7 Date ELSA - 7 assessed: 09/28/23 Source: Developed by Drs. Andrea Murray, Leilani Kyle, Reyes Perez and colleagues, with an educational aiyana from [employer]. Review of Systems Const All systems reviewed & are unremarkable except as noted in HPI and below Card Denies chest pain at rest, Denies chest pain with activity, Denies edema, Denies irregular heart rhythm, Denies claudication, Denies dyspnea, Denies dyspnea on exertion, Denies orthopnea, Denies paroxysmal nocturnal dyspnea and Denies slow heart rate Resp Denies cough, Denies dyspnea and Denies dyspnea on exertion GI Denies abdominal pain, Denies change in bowel habits, Denies excessive flatus, Denies nausea and Denies vomiting Denies urinary incontinence, Denies urinary hesitancy and Denies urinary urgency Physical exam (Primary Care) Vital Signs: Last Vital Signs BP 118/82 02/25/24 13:46 BMI result Body Mass Index 27.8 Tobacco/Smoking Status: Tobacco use Status Tobacco use date assessed 09/28/23 02/25/24 13:53 Patient Tobacco Use Status Former Tobacco user 02/25/24 14:05 e-Cigarette/Vaping Use Never Used 02/25/24 14:05 Thrive Assessment: Date of Thrive Assessment Date Thrive assessed 09/28/23 02/25/24 13:53 HENIA Head: Yes normal to inspection, Yes normocephalic and Yes atraumatic Ears: external ears normal Eyes General: appearance normal, both eyes and all related structures Eyelids: Yes eyelids normal Conjunctivae: conjunctivae normal Neck Neck: Yes normal visual inspection and Yes supple Resp Effort & Inspection: normal respiratory effort Auscultation: clear to auscultation bilaterally Cardio Jugular venous distension: no JVD Rate: regular rate Rhythm: regular rhythm Heart sounds: S1 normal heart sound present and S2 normal heart sound present GI Inspection: Yes normal to inspection Palpation (GI): Soft to palpation and nontender Auscultation: normal bowel sounds Skin General skin exam: no rashes or lesions noted Neuro General: no focal motor deficits Extrem General: Yes full ROM Psych Appearance: grossly normal Assessment and Plan Assessment & Plan (1) Physical exam: Code(s): Z00.00 - Encounter for general adult medical examination without abnormal findings Plan: Repeat in a year. (2) Seropositive rheumatoid arthritis of multiple joints: Code(s): M05.79 - Rheumatoid arthritis with rheumatoid factor of multiple sites without organ or systems involvement Plan: Continue prednisone. Follow-up with rheumatology. (3) Transaminitis: Code(s): R74.01 - Elevation of levels of liver transaminase levels Plan: Hepatitis panel ordered. Ultrasound of the abdomen ordered. Orders: Orders HIV Ab/Ag 02/25/24 Z11.4 - Encounter for screening for human immunodeficiency virus [HIV] Lipid Panel 02/25/24 Z00.00 - Encounter for general adult medical examination without abnormal findings Hepatitis A,B,C Profile Today R74.01 - Elevation of levels of liver transaminase levels US abdomen complete 02/25/24 R74.01 - Elevation of levels of liver transaminase levels Comprehensive [place]. Panel Fast 02/25/24 Z00.00 - Encounter for general adult medical examination without abnormal findings Medications: Refilled diclofenac sodium 75 mg PO BID PRN 20 tabs 0RF pain albuterol sulfate 90 mcg/actuation (Ventolin HFA) 2 puffs PO Q6H PRN 18 ea 1RF shortness of breath or wheezing albuterol sulfate 2.5 mg (3 mL) inhalation Q4-6H PRN 180 mL 0RF shortness of breath or wheezing tizanidine 4 mg PO TID PRN 90 tabs 2RF for muscle spasm Coding Level of Care Code Est Pt Level 3 (65826) Est Pt Prev Care 18-39y(00375) Diagnoses Physical exam Z00.00 Seropositive rheumatoid arthritis of multiple joints M05.79 Transaminitis R74.01 Time Spent (min) 33
== END 2024-02-25 14:18 | disposition home or self-care (01) ==
PROVIDERS: PCP Internal Medicine; Visit Provider Internal Medicine
DX: Z00.00 Encounter for general adult medical examination without abnormal findings (principal); M05.79 Rheumatoid arthritis with rheumatoid factor of multiple sites without organ or systems involvement; R74.01 Elevation of levels of liver transaminase levels
CPT/HCPCS: 99213; 99395

== ENCOUNTER 2024-04-27 16:42 | Outpatient (AMB) | payer OTHER, SELFPAY ==
[2024-04-27 16:47] VITALS: BP 118/70; BMI 26.5
--- NOTE | 2024-04-27 16:47 | A.OFFPC_ITS ---
Vital Signs 04/27/24 16:47 Height 5 ft 2 in Weight 145 lb BMI 26.5 BP 118/70 Blood Pressure Location Lt brachial Position Sitting Intake Visit Reasons: LT arm pain Intake Note: Patient here c/o left shoulder pain Wellness Ambassador Required: No Accompanied by: Self / Same As Patient Allergies aspirin [ASPIRIN] Allergy (Unknown, Verified 04/27/24 17:04) ANAPHYLAXIS Medication List - Last Reconciled 04/27/24 by Brittany Nation MD acetaminophen 500 mg PO Q6H PRN albuterol sulfate 90 mcg/actuation (Ventolin HFA) 2 puffs PO Q6H PRN albuterol sulfate 2.5 mg (3 mL) inhalation Q4-6H PRN diclofenac sodium 75 mg PO BID PRN folic acid 1 mg PO DAILY methotrexate sodium 12.5 mg (5 x 2.5 mg) PO QWEEK omeprazole 20 mg PO BID 90 days prednisone 5 mg PO BID tizanidine 4 mg PO TID PRN Tobacco use date assessed: 09/28/23 Dental Screening Dental Screen Date: 04/27/24 Did you have a dental visit in the last 12 months?: Yes Did you have a dental problem in the last 6 months where you did not have access to dental care?: No Was dental information given to patient?: Patient has dentist HPI HPI Comments History of Present Illness Details This is a 38-year-old female with hepatitis-C that comes today complaining of left shoulder pain that started about a week ago with limited range of motion. She does follows with Rheumatology and has a positive rheumatoid factor. Was on methotrexate in the past which was hold due to transaminitis. I will order an x-ray for her left shoulder. She denies any jaundice. She does not know how she got the hepatitis-C. 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 Seropositive rheumatoid arthritis of multiple joints Screening examination for infectious disease Asthma Asthma exacerbation Surgical History History of section Family History Mother Rheumatoid arthritis Hypertension Father Hypertension Diabetes mellitus Maternal Grandmother Uterine cancer Social History Housing: Apartment Alcohol intake: former Patient Tobacco Use Status: Former Tobacco user e-Cigarette/Vaping Use: Never Used Second Hand Smoke Exposure: No service: No Current occupational status: unemployed Cognitive needs: No Hearing needs: No Vision needs: No Questionnaire Thrive Questionnaire Date Thrive assessed: 09/28/23 Are you currently unemployed and looking for a job?: Yes ELSA-7 AMB Questionnaire ELSA-7 Date ELSA - 7 assessed: 09/28/23 Source: Developed by Drs. Andrea Murray, Leilani Kyle, Reyes Perez and colleagues, with an educational aiyana from [employer]. Review of Systems Const All systems reviewed & are unremarkable except as noted in HPI and below Card Denies chest pain at rest, Denies chest pain with activity, Denies edema, Denies irregular heart rhythm, Denies claudication, Denies dyspnea, Denies dyspnea on exertion, Denies orthopnea, Denies paroxysmal nocturnal dyspnea and Denies slow heart rate Resp Denies cough, Denies dyspnea and Denies dyspnea on exertion GI Denies abdominal pain, Denies change in bowel habits, Denies excessive flatus, Denies nausea and Denies vomiting Musc Reports arthralgias Physical exam (Primary Care) Vital Signs: Last Vital Signs BP 118/70 04/27/24 16:47 BMI result Body Mass Index 26.5 Tobacco/Smoking Status: Tobacco use Status Tobacco use date assessed 09/28/23 04/27/24 16:50 Patient Tobacco Use Status Former Tobacco user 04/27/24 16:50 e-Cigarette/Vaping Use Never Used 04/27/24 16:50 Thrive Assessment: Date of Thrive Assessment Date Thrive assessed 09/28/23 04/27/24 16:50 Resp Effort & Inspection: normal respiratory effort Auscultation: clear to auscultation bilaterally Cardio Jugular venous distension: no JVD Rate: regular rate Rhythm: regular rhythm Heart sounds: S1 normal heart sound present and S2 normal heart sound present Extrem Left upper extremity: shoulder/upper arm Details: abnormal ROM Details: pain with active ROM Details: in ABduction and in extension Assessment and Plan Assessment & Plan (1) Left shoulder pain: Code(s): M25.512 - Pain in left shoulder Plan: X-ray ordered. (2) Hepatitis C: Code(s): B19.20 - Unspecified viral hepatitis C without hepatic coma Plan: Labs ordered. Orders: Orders US abdomen comp w elastography Today R74.01 - Elevation of levels of liver transaminase levels Hepatitis C Genotype Today B19.20 - Unspecified viral hepatitis C without hepatic coma Hepatitis C Viral Load Today B19.20 - Unspecified viral hepatitis C without hepatic coma XR shoulder LT min 2V Today M25.512 - Pain in left shoulder Medications: Refilled albuterol sulfate 90 mcg/actuation (Ventolin HFA) 2 puffs PO Q6H PRN 18 ea 1RF shortness of breath or wheezing Discontinued methotrexate sodium Discontinued Reason: Order 12.5 mg (5 x 2.5 mg) PO QWEEK 60 tabs 0RF M05.79 - Rheumatoid arthritis with rheumatoid factor of multiple sites without organ or systems involvement Coding Level of Care Code Est Pt Level 3 (51670) Complex EM visit Add On G2211 Diagnoses Left shoulder pain M25.512 Hepatitis C B19.20 Time Spent (min) 19
== END 2024-04-27 17:15 | disposition home or self-care (01) ==
PROVIDERS: PCP Internal Medicine; Visit Provider Internal Medicine
DX: M25.512 Pain in left shoulder (principal); B19.20 Unspecified viral hepatitis C without hepatic coma

== ENCOUNTER → 2024-04-27 16:42 | Outpatient (BNVA) | payer OTHER, SELFPAY | PROVIDERS: PCP Internal Medicine; Visit Provider Internal Medicine | DX: M25.512 Pain in left shoulder (principal); B19.20 Unspecified viral hepatitis C without hepatic coma | CPT/HCPCS: 99212 ==

== ENCOUNTER 2024-05-05 08:15 | Outpatient (REF) | payer MEDICAID, SELFPAY ==
[2024-05-05 10:28] LABS: Hepatitis A Antibody IgM 0.18 Index (0-0.79); ~Hepatitis A Antibody IgM Nonreactive (Nonreactive)
[2024-05-05 10:32] LABS: HBS Num1 135.79 mIU/mL (0-7.99); HBc Num1 0.09 S/CO (0.00-0.79); HBsAGNum1 0.26 S/CO (0.00-0.99); HIV AB/AG Nonreactive (Nonreactive); HIV Num 1 0.04 S/CO (0.00-0.99); Hepatitis B Core Antibody Nonreactive (Nonreactive); Hepatitis B Surface Antigen Negative (Negative); ~HepC Num1 13.69 S/CO (0.00-0.79); ~Hepatitis B Surface Antibody REACTIVE (Nonreactive); ~Hepatitis C Antibody Reactive (Nonreactive)
[2024-05-06 11:04] LABS: HCV RNA PCR Qn 790000 IU/mL (NOT DETECTED)
[2024-05-11 15:37] LABS: HCV Genotype LiPA 1a
== END 2024-05-05 08:16 | disposition home or self-care (01) ==
LOC: HO.XRAY 08:15
PROVIDERS: Absent Provider Internal Medicine; PCP Internal Medicine; Visit Provider Student in an Organized Health Care Education/Training Program
DX: M25.50 Pain in unspecified joint (principal); R76.8 Other specified abnormal immunological findings in serum; R74.01 Elevation of levels of liver transaminase levels; Z11.4 Encounter for screening for human immunodeficiency virus [HIV]
CPT/HCPCS: 36415; 86704; 86706; 86709; 86803; 87340; 87389; 87522; 87902; 99212

== ENCOUNTER 2024-05-05 08:15 | Outpatient (AMB) | payer OTHER, SELFPAY ==
--- NOTE | 2024-05-05 08:16 | A.OFFVIS_ITS ---
Vital Signs 05/05/24 08:21 Height 5 ft 2 in Weight 144 lb 6.444 oz BMI 26.4 BP 112/78 Blood Pressure Location Rt brachial Position Sitting Pulse 88 Pulse Source Pulse Oximeter Pulse Oximetry (%) 96 Oxygen Delivery Method Room Air Intake Visit Reasons: joint pain Intake Note: Patient presents for joint pain. Feeling pain on my left shoulder for a week now. Taking no pain medication. Warehouse Technician Required: Yes Warehouse Technician Language: [employer]: Warehouse Technician Present Warehouse Technician Name: Polo [id number] Allergies aspirin [ASPIRIN] Allergy (Unknown, Verified 05/05/24 08:20) ANAPHYLAXIS Medication List - Last Reconciled 05/05/24 by Sandra Aguilera MD acetaminophen 500 mg PO Q6H PRN albuterol sulfate 2.5 mg (3 mL) inhalation Q4-6H PRN albuterol sulfate 90 mcg/actuation (Ventolin HFA) 2 puffs PO Q6H PRN diclofenac sodium 75 mg PO BID PRN folic acid 1 mg PO DAILY omeprazole 20 mg PO BID 90 days prednisone 5 mg PO BID tizanidine 4 mg PO TID PRN HPI Comments Details: This is a 38-year-old female who was recently diagnosed with seropositive RA by Yeni Sullivan who returns for follow-up. Methotrexate was prescribed but patient did not take it as had transaminitis. Patient has low titer positive rheumatoid factor. And has migratory joint pain. She states that recently she has been having left shoulder pain. Difficulty with range of motion. Does not recall any trauma or overuse. Also recently found to have a positive hepatitis-C antibody and hepatitis C viral load was ordered by her PCP. [facility] Medical History (Updated 05/05/24 @ 08:56 by Sandra Aguilera MD) Screening examination for infectious disease Asthma Asthma exacerbation Surgical History History of section Family History Mother Rheumatoid arthritis Hypertension Father Hypertension Diabetes mellitus Maternal Grandmother Uterine cancer Social History Housing: Apartment Alcohol intake: former Patient Tobacco Use Status: Former Tobacco user e-Cigarette/Vaping Use: Never Used Second Hand Smoke Exposure: No service: No Current occupational status: unemployed Cognitive needs: No Hearing needs: No Vision needs: No Review of Systems Const Denies fever(s), Denies weight gain and Denies weight loss Musc Reports arthralgias, Reports joint swelling and Reports limited range of motion Physical Exam Vital Signs: Last Vital Signs Pulse 88 05/05/24 08:21 BP 112/78 05/05/24 08:21 Pulse Ox 96 05/05/24 08:21 Oxygen Delivery Method Room Air 05/05/24 08:21 BMI result Body Mass Index 26.4 Const General: cooperative, healthy appearing and comfortable Nutritional Appearance: overweight Orientation/consciousness: patient oriented x3 Limitations: no limitations HEENT Head: Yes normocephalic and Yes atraumatic Mouth: moist mucous membranes Resp Effort & Inspection: normal respiratory effort and able to speak in complete sentences Auscultation: clear to auscultation bilaterally Cardio Rate: regular rate Rhythm: regular rhythm Skin General skin exam: no rashes or lesions noted Neuro General: patient oriented x3 Extrem Other: No active synovitis both hands and wrists Normal range of motion of elbows without pain Limited range of motion of left shoulder Tenderness at the shoulder anteriorly with negative empty can test and negative Speed's test Normal nailfold capillaroscopy Positive straight leg raise test on the right No knee pain with flexion and extension bilaterally No ankle swelling or tenderness bilaterally Assessment & Plan Assessment & Plan (1) Polyarthralgia: Code(s): M25.50 - Pain in unspecified joint Category: Medical Plan: For this is a 38-year-old female who presents for evaluation of polyarthralgia. Patient has migratory joint pains affecting different joints. Positive family history of rheumatoid arthritis. Labs showed borderline positive rheumatoid factor it also showed a positive hepatitis-C antibody. I think at this time patient should be investigated for active hepatitis-C infection and treated as such. Hepatitis-C can cause arthralgias that can mimic rheumatoid arthritis. If no hepatitis-C viral load is detected, patient can be treated as seropositive RA. At this time patient takes prednisone every 3 or 4 days only as needed. Can continue to take prednisone 5 mg once daily as needed. Check bilateral shoulder hand and wrist x-rays Follow-up in about 6 weeks (2) Rheumatoid factor positive: Code(s): R76.8 - Other specified abnormal immunological findings in serum Category: Medical Plan: As mentioned above, can be by a positive hepatitis-C antibody Plan I spent 30 minutes reviewing patient's chart, evaluating patient, ordering diagnostic workup, counseling patient and documenting in the chart Orders: Orders XR hand wrist RT Today M05.79 - Rheumatoid arthritis with rheumatoid factor of multiple sites without organ or systems involvement XR hand wrist LT Today M05.79 - Rheumatoid arthritis with rheumatoid factor of multiple sites without organ or systems involvement XR shoulder RT min 2V Today M05.79 - Rheumatoid arthritis with rheumatoid factor of multiple sites without organ or systems involvement Medications: Changed From prednisone 5 mg PO BID 60 tabs 1RF M25.50 - Pain in unspecified joint To prednisone 5 mg PO DAILY PRN 30 tabs 0RF pain M25.50 - Pain in unspecified joint Coding Level of Care Code Est Pt Level 4 (45887) Diagnoses Polyarthralgia M25.50 Rheumatoid factor positive R76.8
[2024-05-05 08:21] VITALS: BP 112/78; PULSE 88; O2SAT 96; BMI 26.4
== END 2024-05-05 08:52 | disposition home or self-care (01) ==
PROVIDERS: PCP Internal Medicine; Visit Provider Student in an Organized Health Care Education/Training Program
DX: M25.50 Pain in unspecified joint (principal); R76.8 Other specified abnormal immunological findings in serum
CPT/HCPCS: 99214

== ENCOUNTER 2024-10-12 13:05 | Outpatient (REF) | payer OTHER, SELFPAY ==
[2024-10-12 16:05] LABS: Alanine Aminotransferase 36 U/L (0-31); Albumin Level 4.2 g/dL (3.5-5.0); Aspartate Amino Transferase 38 U/L (5-31); Bilirubin Direct 0.2 mg/dL (0.0-0.5); Bilirubin Total 0.5 mg/dL (0.0-1.0); Total Protein 7.9 g/dL (6.5-8.0)
[2024-10-12 17:07] LABS: Alkaline Phosphatase 84 U/L (39-117)
[2024-10-13 15:03] LABS: HCV RNA PCR Qn 5.86 Log IU/mL (NOT DETECTED); HCV RNA PCR Qn 730000 IU/mL (NOT DETECTED)
[2024-10-14 11:53] LABS: Alpha Fetoprotein 3.4 ng/mL
[2024-10-18 01:32] LABS: FIB-ALT 28 U/L (6-29); FIB-Alpha-2-Macroglobulin 250 mg/dL (106-279); FIB-Apolipoprotein A1 169 mg/dL (101-198); FIB-GGT 72 U/L (3-50); FIB-Haptoglobin 141 mg/dL (43-212); FIB-Total Bilirubin 0.5 mg/dL (0.2-1.2); Liver Fibrosis Stage F0; Nec Inflam Act Grade A0; Nec Inflam Act Score 0.12
[2024-10-18 15:18] LABS: HCV Genotype LiPA 1a
== END 2024-10-12 13:06 | disposition home or self-care (01) ==
LOC: HO.LAB 13:05
PROVIDERS: PCP Internal Medicine; Visit Provider Internal Medicine
DX: B19.20 Unspecified viral hepatitis C without hepatic coma (principal)
CPT/HCPCS: 36415; 80076; 81596; 82105; 87522; 87902; 99202

== ENCOUNTER 2024-10-12 13:05 | Outpatient (AMB) | payer OTHER, SELFPAY ==
--- NOTE | 2024-10-12 13:06 | MHC.OFFVIS ---
Vital Signs 10/12/24 13:09 Height 5 ft 2 in Weight 138 lb 14.259 oz BMI 25.4 BP 108/62 Blood Pressure Location Lt brachial Position Sitting Pulse 72 Intake Visit Reasons: hepatitis C without hepatic coma Intake Note: Vidhya presents in the office as a new patient for Hep C w/o heptic coma. CC: She states that she has had a few episodes where had some pains in the right side of her abdomen. 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 Pt was undergoing work up for rheumatoid arthritis when she was noted to have elevated LFTs. This prompted prelim work up which is positive for chronic HCV genotype 1a. Pt with prev hx of drug use. HBV neg. HIV neg. Pt herself reports intermittent RUQ soreness otherwise no N/V/D. No increase in abd girth reported. No fam hx of liver disease. [facility] Medical History Screening examination for infectious disease Asthma Asthma exacerbation Surgical History History of section Family History Mother Rheumatoid arthritis Hypertension Father Hypertension Diabetes mellitus Maternal Grandmother Uterine cancer Social History Housing: Apartment Alcohol intake: former Patient Tobacco Use Status: Former Tobacco user e-Cigarette/Vaping Use: Never Used Second Hand Smoke Exposure: No service: No Current occupational status: unemployed Cognitive needs: No Hearing needs: No Vision needs: No Review of Systems Const All systems reviewed & are unremarkable except as noted in HPI and below Physical Exam Vital Signs: Last Vital Signs Pulse 72 10/12/24 13:09 BP 108/62 10/12/24 13:09 BMI result Body Mass Index 25.4 No apparent distress Nonicteric Abdomen soft, nondistended Alert and oriented x3, normal gait Assessment & Plan Assessment & Plan (1) Hepatitis C: Code(s): B19.20 - Unspecified viral hepatitis C without hepatic coma Category: Medical Plan Chronic HCV genotype 1a Tx naiive No evidence of advanced fibrosis at this time. Fib 4 0.63. Plan: - Check updated liver panel, HCV RNA - Fibrosure - US Abd - Will likely need epclusa vs mavyret pending insurance approval Follow up 3 months Orders: Orders Liver Fibrosis Pnl Today B19.20 - Unspecified viral hepatitis C without hepatic coma Alpha Fetoprotein Today B19.20 - Unspecified viral hepatitis C without hepatic coma Liver Panel Today B19.20 - Unspecified viral hepatitis C without hepatic coma HCV RNA QN PROG TO GENOTYPE Today B19.20 - Unspecified viral hepatitis C without hepatic coma US abdomen complete Today B19.20 - Unspecified viral hepatitis C without hepatic coma Coding Level of Care Code New Pt Level 4 (31916) Diagnoses Hepatitis C B19.20
[2024-10-12 13:09] VITALS: BP 108/62; PULSE 72; BMI 25.4
== END 2024-10-12 13:29 | disposition home or self-care (01) ==
PROVIDERS: PCP Internal Medicine; Visit Provider Internal Medicine
DX: B19.20 Unspecified viral hepatitis C without hepatic coma (principal)
CPT/HCPCS: 99204

== ENCOUNTER 2024-10-30 14:22 | Emergency (ER) | payer OTHER, SELFPAY ==
--- NOTE | ~2024-10-30 | US_ITS ---
CLINICAL HISTORY: intermittent right pelvic pain, hx cysts r o torsi Exam: 1. Pelvic ultrasound, transabdominal and transvaginal evaluation. 2. Duplex ultrasound of the ovaries. Comparison: None. Findings: Transabdominal and transvaginal pelvic ultrasound study was performed. Urinary bladder is minimally distended on the transabdominal images. Uterus is anteverted. Uterus measures 8.5 x 4.5 x 4.8 cm in size. Heterogeneous echotexture throughout the myometrium without discrete fibroid. Endometrial stripe measures 3.5 mm in thickness without mass, polyp, or focal thickening. Right ovary measures 2.5 x 2.1 x 2.5 cm in size. Left ovary measures 2.6 x 1.9 x 2.0 cm in size. Ovaries are unremarkable in appearance bilaterally within a normal follicular pattern. However, there is a heterogeneous mass lesion within the right lower quadrant separate from the right ovary. This measures 4.1 x 2.9 x 4.7 cm in size. This has both solid and cystic components with associated hypervascularity. No free pelvic fluid. Duplex evaluation of the ovaries was performed. This included real-time grayscale, color spectral Doppler analysis, and color Doppler flow imaging. Appropriate blood flow to both ovaries. Impression: 1. Complex mass lesion in the right lower quadrant appears separate from the right ovary. This may be an abnormal lymph node or other lesion. Further evaluation with a contrast-enhanced CT of the abdomen and pelvis is suggested. 2. Unremarkable ultrasound of the uterus and ovaries. This document has been electronically signed by: Prosper Mack MD on 10/30/2024 17:08:00
--- NOTE | ~2024-10-30 | CT_ITS ---
CLINICAL HISTORY: RLQ pain, abn Ultrasound CT abdomen and pelvis with contrast Comparison: US - US PELVIC OVARIAN DOPPLER - 10/30/24 15:36 EDT Findings: Small hiatal hernia. The liver, gallbladder, spleen, pancreas, kidneys and adrenal glands are normal in appearance. Incidental note of a 1 cm cyst in the posterior right lobe of the liver. No bowel obstruction, pneumoperitoneum, or pneumatosis. Left inguinal lymph nodes are normal. There are a few mildly prominent lymph nodes in the right inguinal lymph node cluster, measuring up to 10 mm in short axis. No retroperitoneal enlarged lymph nodes. Uterus and adnexa are normal. There is a mass centered within the inferior right rectus muscle with multiple adjacent enlarged lymph nodes along the inner surface of the rectus muscle. Series 3, image 60. This mass measures 4.6 x 3.1 x 5.5 cm. Mass is diffusely hyperenhancing, with some areas of internal heterogeneity. Mass appears to be extending into the subcutaneous fat superficial to the rectus muscle as well as abutting the peritoneal fat. No ascites. No acute fracture. No lytic or blastic bone lesions. IMPRESSION: 1. Enhancing lobulated mass centered within the inferior right rectus muscle with extension into the subcutaneous fat and adjacent enlarged intrapelvic lymph nodes as well as borderline enlarged right inguinal lymph nodes. Findings are concerning for malignancy with adjacent lymphadenopathy or chronic infection. Alternatively, findings could be a desmoid tumor, although the irregular margins are less typical. This document has been electronically signed by: Elan Brown MD on 10/30/2024 19:04:14
--- NOTE | 2024-10-30 14:34 | ED.ABDPAIN ---
HPI - Abdominal Pain General Chief Complaint: Abdominal Pain Stated Complaint: pain on R side Time Seen by Provider: 10/30/24 16:35 History of Present Illness ED Provider: Samaria FLORENTINO narrative: The patient is a 39-year-old female who says that she has had pain in her right lower abdomen for a couple of weeks but it got much worse last night and was associated with some nausea and vomiting. She has never had pain like this before. She has had no vaginal bleeding or discharge. She does not have any back pain. No urinary symptoms. She has had a and she has had tubal ligation but no other surgeries. Related Data Previous Rx's ?Medication ?Instructions ?Recorded albuterol sulfate 2.5 mg/3 mL 2.5 mg (3 mL) inhalation Q4-6H PRN 02/25/24 (0.083 %) solution for nebulization shortness of breath or wheezing #180 mL diclofenac sodium 75 mg 75 mg PO BID PRN pain #20 tabs 02/25/24 tablet,delayed release folic acid 1 mg tablet 1 mg PO DAILY #90 tabs 02/26/24 acetaminophen 500 mg tablet 500 mg PO Q6H PRN fever or pain 05/10/24 #120 tabs albuterol sulfate 90 mcg/actuation 2 puff PO Q6H PRN shortness of 09/23/24 aerosol inhaler (Ventolin HFA) breath or wheezing #18 ea ondansetron 4 mg disintegrating 4 mg PO BID PRN nausea and 10/13/24 tablet vomiting 3 days #10 tabs sofosbuvir 400 mg-velpatasvir 100 1 tab PO DAILY 12 weeks #84 tabs 10/21/24 mg tablet tizanidine 4 mg tablet 4 mg PO TID PRN for muscle spasm 10/25/24 #90 tabs morphine 15 mg immediate release 15 mg PO Q6H PRN pain #16 tabs 10/30/24 tablet ondansetron 4 mg disintegrating 4 mg PO Q6H PRN nausea and 10/30/24 tablet vomiting #10 tabs Allergies Allergy/AdvReac Type Severity Reaction Status Date / Time aspirin [ASPIRIN] Allergy Unknown ANAPHYLAXIS Verified 10/30/24 14:38 Review of Systems Review of Systems Yes all other systems are reviewed and are negative PMFSH Past Medical History Medical History Screening examination for infectious disease Asthma Asthma exacerbation Surgical History History of section Family History Family History Mother Rheumatoid arthritis Hypertension Father Hypertension Diabetes mellitus Maternal Grandmother Uterine cancer Social History Social History Housing: Apartment Unable to assess alcohol history related to: Unknown Alcohol intake: former Patient Tobacco Use Status: Former Tobacco user Smoked in Last 30 Days: No e-Cigarette/Vaping Use: Never Used Second Hand Smoke Exposure: No Use of substances other than those prescribed or required for medical reasons: Unknown Advance Directives: No Advance Directives Information Provided: Yes service: No Current occupational status: unemployed Cognitive needs: No Hearing needs: No Vision needs: No Physical Exam ED Vital Signs: Vital Signs - 24 hr 10/30/24 14:37 10/30/24 18:19 Temperature 98.5 F 98.1 F Pulse Rate 88 62 Respiratory Rate 18 18 Blood Pressure 116/73 123/78 Pulse Oximetry 98 99 Oxygen Delivery Method Room Air Room Air BMI result Body Mass Index 24.5 Const Other: The patient is awake and alert. She does not appear acutely ill. HENMT Other: Face is symmetrical. Mucous membranes moist. Eyes General: appearance normal, both eyes and all related structures Neck Neck: Yes full ROM Resp Effort & Inspection: normal respiratory effort Auscultation: clear to auscultation bilaterally Cardio Rate: regular rate Rhythm: regular rhythm Heart sounds: S1 normal heart sound present and S2 normal heart sound present GI Other: The patient is moderately tender in the right lower quadrant. The tenderness seems to be quite superficial. General: Yes no CVA tenderness Back/Spine/Pelvis Back: no CVA tenderness Skin Other: Skin is dry and unremarkable Neuro Other: The patient is awake and alert with a normal mental status. Cranial nerves are grossly intact. She moves her extremities normally. Extrem Other: No peripheral edema Course Course Course Narrative: This is a Rapid Medical Examination (RME) performed by James Beckman PA-C in triage. Full HPI, ROS, assessment and treatment plan per primary provider in the Main ED. Hx: 39 yo female hx of asthma here for eval of intermittent RLQ/pelvic pain x1 week, worsening and becoming more constant. hx of ovarian cysts. assoc. nausea w/o vomiting. denies hx appendecetomy. denies dec appetite, fever, chills, urinary sx, vaginal bleeding/discharge. lmp 1 wk ago. PE/vitals: vitals stable. appears uncomfortable. ttp of RLQ/ right lower pelvis. Plan: screening labs, UA/ upreg, pelvic US/ doppler Medical Decision Making Medical Decision Making [facility] Narrative: The patient is a 39-year-old female who presents with right lower quadrant abdominal pain. She has been seen at triage and a pelvic ultrasound was ordered. This revealed swelling which is not related to the ovary. Recommendation was for CT with contrast. A CT of the abdomen and pelvis shows that there is a mass in the right rectus muscle in the right lower quadrant of uncertain etiology. The patient does not appear acutely ill. Case was discussed with the on-call surgeon Dr. Lewis and we agree the patient can be discharged with a plan for an outpatient biopsy. The patient seems comfortable with this plan. The patient says that she has been taking acetaminophen and ibuprofen without relief. I will prescribe tablets of morphine that she may use in addition to the ibuprofen and acetaminophen. Also a prescription for ondansetron. Lab Data 10/30/24 14:47 10/30/24 14:47 Labs: Lab Results 10/30/24 10/30/24 Range/Units 14:47 17:07 WBC 9.4 (4.8-10.8) X10*3/uL RBC 4.46 (4.20-5.50) X10*6/uL Hgb 13.9 (12.0-16.0) g/dl Hct 41.1 (37.0-47.0) % MCV 92.2 (80.0-98.0) fL MCH 31.2 (27.0-33.0) pg MCHC 33.8 (31.0-35.0) g/dl RDW 13.7 (11.0-16.0) % Plt Count 369 (160-400) X10*3/uL MPV 9.7 (9.4-12.3) fL Immature Gran % (Auto) 0.7 H (0.0-0.4) % Neut % (Auto) 54.2 (45-73) % Lymph % (Auto) 31.8 (20-40) % [place] % (Auto) 10.1 (2-11) % Eos % (Auto) 2.4 (0-4) % Baso % (Auto) 0.8 (0-2) % Lymph # (Auto) 3.0 (1.2-4.9) X10*3/uL [place] # (Auto) 1.0 (0.1-1.2) X10*3/uL Eos # (Auto) 0.2 (0.0-0.4) X10*3/uL Baso # (Auto) 0.1 (0.0-0.2) X10*3/uL Abs Immat Gran (auto) 0.07 H (0.00-0.03) X10*3/uL Absolute Neuts (auto) 5.1 (2.0-8.3) x10*3/uL Absolute Nucleated RBC 0.000 (0.0-0.012) X10*3/uL Nucleated RBC % (auto) 0.0 (0.0-0.2) /100WBC Sodium 138 (135-145) mmol/L Potassium 4.1 (3.3-5.1) mmol/L Chloride 106 (96-108) mmol/L Carbon Dioxide 25 (22-29) mmol/L Anion Gap 11 L (12-20) BUN 8 L (9-16) mg/dL Creatinine 0.66 (0.5-1.4) mg/dL Estim Creat Clear Calc 99.1 Estimated GFR > 60 Random Glucose 97 (60-115) mg/dL Calcium 9.2 (8.4-10.2) mg/dL Magnesium 2.1 (1.6-2.6) mg/dL Total Bilirubin 0.4 (0.0-1.0) mg/dL AST 46 H (5-31) U/L ALT 43 H (0-31) U/L Alkaline Phosphatase 82 (39-117) U/L Total Protein 7.9 (6.5-8.0) g/dL Albumin 4.0 (3.5-5.0) g/dL Lipase 22 (8-78) U/L Beta HCG, Quant < 2 mIU/mL Urine Color Yellow Urine Appearance Clear Urine pH 7.5 (5.0-9.0) Ur Specific [place] <= 1.005 (1.005-1.025) Urine Protein Negative (Neg-Trace) mg/dL Urine Glucose (UA) Negative (Negative) mg/dL Urine Ketones Negative (Negative) mg/dL Urine Blood Negative (Negative) Urine Nitrite Negative (Negative) Ur Leukocyte Esterase Negative (Negative) Urine Test NEGATIVE (NEGATIVE) Medications Administered Discontinued Medications Generic Name Dose Route Start Last Admin Trade Name Roberto PRN Reason Stop Dose Admin Sodium Chloride 1,000 mls @ 999 mls/hr 10/30/24 17:30 10/30/24 17:37 Ns IV 10/30/24 18:30 999 mls/hr .Q1H1M ABELARDO Administration Iohexol 100 ml 10/30/24 18:18 10/30/24 18:19 Iohexol 350 Mg/Ml 100 Ml Infus..Btl IV 10/30/24 18:19 85 ml ONCE ONE Administration Ketorolac Tromethamine 10 mg 10/30/24 17:14 10/30/24 17:38 Ketorolac Tromethamine 15 Mg/Ml Vial IVPUSH 10/30/24 17:15 10 mg ONCE ONE Administration Ondansetron HCl 4 mg 10/30/24 17:16 10/30/24 17:37 Ondansetron Hcl 4 Mg/2 Ml Vial IVPUSH 10/30/24 17:17 4 mg ONCE ONE Administration Discharge Plan Discharge Clinical Impression: Abdominal wall mass of right lower quadrant Patient Disposition: Home, Self-Care Additional Instructions: The CAT scan shows that you have some kind of swelling in the abdominal muscle of your right lower abdomen. It is not clear what this represents. I have spoken to the on-call general surgeon and we agree that the next step would be for you to have a biopsy of this problem. Please call the General surgery office in the morning for a follow up appointment this week to arrange the biopsy so that more can be learned about this issue. I have sent a prescription for morphine tablets to your pharmacy. I would recommend that you use this in addition to acetaminophen and ibuprofen. I have also sent a prescription for ondansetron tablets that you may use as needed for nausea. Stay in touch with your regular doctor for additional questions as needed. Return to the emergency room if significantly worse. Prescriptions: New morphine 15 mg tablet 15 mg PO Q6H PRN (Reason: pain) Qty: 16 0RF Rx Instructions: Partial Fill upon patient request. ondansetron 4 mg tablet,disintegrating 4 mg PO Q6H PRN (Reason: nausea and vomiting) Qty: 10 0RF No Action folic acid 1 mg tablet 1 mg PO DAILY Qty: 90 1RF acetaminophen 500 mg tablet 500 mg PO Q6H PRN (Reason: fever or pain) Qty: 120 2RF albuterol sulfate [Ventolin HFA] 90 mcg/actuation HFA aerosol inhaler 2 puff PO Q6H PRN (Reason: shortness of breath or wheezing) Qty: 18 1RF ondansetron 4 mg tablet,disintegrating 4 mg PO BID PRN (Reason: nausea and vomiting) 3 Days Qty: 10 0RF sofosbuvir-velpatasvir 400-100 mg tablet 1 tab PO DAILY 84 Days Qty: 84 0RF tizanidine 4 mg tablet 4 mg PO TID PRN (Reason: for muscle spasm) Qty: 90 2RF albuterol sulfate 2.5 mg /3 mL (0.083 %) solution for nebulization 2.5 mg inhalation Q4-6H PRN (Reason: shortness of breath or wheezing) Qty: 180 0RF diclofenac sodium 75 mg tablet,delayed release (DR/EC) 75 mg PO BID PRN (Reason: pain) Qty: 20 0RF Referrals: [facility] General Surgeons [Provider Group] Brittany Ernandez MD [Primary Care Provider] - (Mass in the rectus abdominis, etiology unclear, needs biopsy) Print Language: [place]
[2024-10-30 14:37] VITALS: BP 116/73; PULSE 88; RESP 18; TEMP 36.9; O2SAT 98; BMI 24.5
[2024-10-30 14:52] LABS: MANUAL DIFF FLAG NO
[2024-10-30 14:55] LABS: Basophils Absolute Auto 0.1 X10*3/uL (0.0-0.2); Basophils Percent Auto 0.8 % (0-2); Eosinophils Absolute Auto 0.2 X10*3/uL (0.0-0.4); Eosinophils Percent Auto 2.4 % (0-4); Hematocrit 41.1 % (37.0-47.0); Hemoglobin 13.9 g/dl (12.0-16.0); Imm Gran Abs Auto 0.07 X10*3/uL (0.00-0.03); Imm Gran Pct Auto 0.7 % (0.0-0.4); Lymphocytes Percent Auto 31.8 % (20-40); Mean Corpuscular HGB Conc 33.8 g/dl (31.0-35.0); Mean Corpuscular Hemoglobin 31.2 pg (27.0-33.0); Mean Corpuscular Volume 92.2 fL (80.0-98.0); Mean Platelet Volume 9.7 fL (9.4-12.3); Monocytes Percent Auto 10.1 % (2-11); Neutrophils Absolute Auto 5.1 x10*3/uL (2.0-8.3); Neutrophils Percent Auto 54.2 % (45-73); Platelet Count 369 X10*3/uL (160-400); Red Blood Count 4.46 X10*6/uL (4.20-5.50); Red Cell Distribution Width 13.7 % (11.0-16.0); White Blood Count 9.4 X10*3/uL (4.8-10.8)
[2024-10-30 15:17] LABS: Alkaline Phosphatase 82 U/L (39-117); Anion Gap 11 (12-20); Aspartate Amino Transferase 46 U/L (5-31); Bilirubin Total 0.4 mg/dL (0.0-1.0); Blood Urea Nitrogen 8 mg/dL (9-16); Calcium 9.2 mg/dL (8.4-10.2); Carbon Dioxide 25 mmol/L (22-29); Chloride 106 mmol/L (96-108); Creatinine Clr Calc Pharmacy 99.1; Estimated Glomerular Filt Rate > 60; Glucose Random 97 mg/dL (60-115); HCG Quantitative < 2 mIU/mL; Magnesium 2.1 mg/dL (1.6-2.6); Potassium 4.1 mmol/L (3.3-5.1); Sodium 138 mmol/L (135-145); Total Protein 7.9 g/dL (6.5-8.0)
[2024-10-30 15:29] LABS: Alanine Aminotransferase 43 U/L (0-31)
[2024-10-30 16:58] LABS: Lipase 22 U/L (8-78)
[2024-10-30 17:19] LABS: Appearance Urine Clear; Color Urine Yellow; Glucose Urine UA Negative (Negative); Leukocyte Esterase Urine Negative (Negative); Nitrite Urine Negative (Negative); PH 7.5 (5.0-9.0); Specific Gravity - Urine <= 1.005 (1.005-1.025); Urine Blood Negative (Negative); Urine Ketones Negative (Negative); Urine Protein Negative (Neg-Trace)
[2024-10-30 17:20] LABS: UPreg QC Valid YES; Urine Pregnancy NEGATIVE (NEGATIVE)
[2024-10-30] MEDS: 0.9 % Sodium Chloride 1,000 ML 999 ML IV (17:37)
[2024-10-30] MEDS: ondansetron HCL 4 MG/2 ML VIAL IVPUSH (17:37)
[2024-10-30] MEDS: Ketorolac Tromethamine 15 MG/ML VIAL 10 MG IVPUSH (17:38)
[2024-10-30 18:19] VITALS: BP 123/78; PULSE 62; RESP 18; TEMP 36.7; O2SAT 99
[2024-10-30] MEDS: iohexoL 350 MG/ML 100 ML INFUS..BTL IV (18:19)
--- NOTE | 2024-10-30 19:15 | PC.NURSE ---
this rn assumed care of pt, pt resting in stretcher, family at bedside, no acute distress noted.
--- NOTE | 2024-10-30 19:16 | PC.NURSE ---
this rn assumed care of pt, pt resting in stretcher, no acute distress noted, iv fluids running at this time.
[2024-10-30 20:00] VITALS: BP 122/98; PULSE 59; RESP 20; TEMP 36.7; O2SAT 98
[2024-10-30 20:05] VITALS: BP 122/98; PULSE 59; RESP 20; TEMP 36.7; O2SAT 98
== END 2024-10-30 20:06 | disposition home or self-care (01) ==
PROVIDERS: Physician Assistant Medical; Emergency Provider Emergency Medicine; PCP Internal Medicine
DX: R19.03 Right lower quadrant abdominal swelling, mass and lump (principal); R10.31 Right lower quadrant pain; R11.2 Nausea with vomiting, unspecified; R10.2 Pelvic and perineal pain
CPT/HCPCS: 36415; 74177; 76830; 76856; 80053; 81003; 81025; 83690; 83735; 84702; 85025; 93975; 96374; 96375; 99284; 99285; J1885; J2405; Q9967

== ENCOUNTER → 2024-10-30 14:34 | Outpatient (BNV) | payer OTHER, SELFPAY | PROVIDERS: Emergency Provider Emergency Medicine; PCP Internal Medicine; Visit Provider Radiology Diagnostic Radiology | DX: R22.2 Localized swelling, mass and lump, trunk (principal); R19.03 Right lower quadrant abdominal swelling, mass and lump | CPT/HCPCS: 74177; 93975 ==

== ENCOUNTER 2024-11-01 08:52 | Outpatient (AMB) | payer OTHER, SELFPAY ==
--- NOTE | 2024-11-01 08:54 | A.OFFVIS_ITS ---
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 This has been going on for several months time. They are related to her menses and cyclical in nature. Because of which he thinks his enlarging mass and increasing symptoms, she presents here for further follow-up. She is status post x2. Patient was otherwise tolerating a diet. She has regular bowel habits. No other constitutional symptoms. Weight, energy, appetite stable. Chart was reviewed and patient evaluated [facility] Medical History Screening examination for infectious disease Asthma Asthma exacerbation Surgical History History of section Family History Mother Rheumatoid arthritis Hypertension Father Hypertension Diabetes mellitus Maternal Grandmother Uterine cancer Social History Housing: Apartment Unable to assess alcohol history related to: Unknown Alcohol intake: former Patient Tobacco Use Status: Former Tobacco user e-Cigarette/Vaping Use: Never Used Second Hand Smoke Exposure: No service: No Current occupational status: unemployed Cognitive needs: No Hearing needs: No Vision needs: No Physical Exam Vital Signs: Last Vital Signs Pulse 58 03/25/25 08:55 BP 117/71 11/01/24 08:55 BMI result Body Mass Index 25.2 GI Other: Patient was a mildly corpulent abdomen. Several tattoos. There is a fullness/mass involving the right lower quadrant abdominal wall. Remaining abdomen exam benign. Suprapubic scar Assessment & Plan Assessment & Plan (1) Endometrioma: Code(s): N80.129 - Deep endometriosis of ovary, unspecified ovary Category: Surgical Plan: Current plan is to arrange for ultrasound-guided biopsy indirect further interventions and studies based on these results. My suspicion is this process is an endometrioma related to a prior . The position and proximity to the scar and the cyclical symptoms highly suggestive of this. Orders: Orders US biopsy subcutaneous skin Today N80.129 - Deep endometriosis of ovary, unspecified ovary Coding Level of Care Code New Pt Level 4 (70231) Diagnoses Endometrioma N80.129
[2024-11-01 08:55] VITALS: BP 117/71; PULSE 58; BMI 25.2
== END 2024-11-01 09:25 | disposition home or self-care (01) ==
LOC: HO.HGS 08:53
PROVIDERS: PCP Internal Medicine; Visit Provider Surgery
DX: N80.129 Deep endometriosis of ovary, unspecified ovary (principal)
CPT/HCPCS: 99204

== ENCOUNTER → 2024-11-01 08:52 | Outpatient (BNVA) | payer OTHER, SELFPAY | PROVIDERS: PCP Internal Medicine; Visit Provider Surgery | DX: N80.129 Deep endometriosis of ovary, unspecified ovary (principal) | CPT/HCPCS: 99202 ==

== ENCOUNTER 2024-11-07 09:07 | Outpatient (REF) | payer OTHER, SELFPAY ==
--- NOTE | ~2024-11-07 | US_ITS ---
ULTRASOUND-GUIDED BIOPSY RIGHT INFERIOR RECTUS MASS. HISTORY: 39-year-old female, painful lobular mass involving right rectus muscle in the region of a prior scar, for percutaneous biopsy. COMPARISON: CT abdomen and pelvis 10/30/2024. TECHNIQUE/FINDINGS: Informed consent was obtained from the patient. Timeout was performed verifying site and laterality. Using ultrasound guidance, the lobular hypoechoic vascular mass measuring 5.8 x 3.0 x 5.0 cm involving the right rectus muscle inferiorly was localized, and the overlying skin marked, prepped and draped in sterile fashion. Skin and subcutaneous tissues were anesthetized with 10 mL 1% lidocaine. Subsequently, an 18-gauge spring-loaded core biopsy gun was introduced into the periphery of the lesion, and 4 18-gauge core biopsies were obtained. These were placed in CytoLyt and forwarded to the laboratory for pathological analysis. The patient tolerated the procedure well. No immediate complication was evident. A few sales service representative images of the procedure were stored and archived. US/US biopsy subcutaneous skin IMPRESSION: 1. Percutaneous biopsy of a 5.8 x 3.0 x 5.0 cm infiltrative appearing right inferior rectus mass without immediate complication. Await pathology. Electronically signed by: Rocky Madrigal MD 11/07/2024 11:56 AM EDT
[2024-11-07] MEDS: Lidocaine HCl 1 % MPF 5 ML VIAL 15 ML SUBCUT (10:30)
== END 2024-11-07 09:08 | disposition home or self-care (01) ==
LOC: HO.US 09:07
PROVIDERS: PCP Internal Medicine; Visit Provider Surgery
DX: N80.129 Deep endometriosis of ovary, unspecified ovary (principal); Z98.891 History of uterine scar from previous surgery
CPT/HCPCS: 11104; 88304; 88305; 88341; 88342; 88360; J2003

== ENCOUNTER 2024-11-15 13:29 | Outpatient (AMB) | payer OTHER, SELFPAY ==
[2024-11-15 13:33] VITALS: BMI 25.2
--- NOTE | 2024-11-15 13:33 | MHC.OFFVIS ---
Vital Signs 11/15/24 13:33 Height 5 ft 2 in Weight 138 lb BMI 25.2 Intake Visit Reasons: s/p US bx Intake Note: Patient here s/p US bx right lower quadrant mass, needle core biopsy on 11-07-2024. Reports bx site healing well. Patient c/o: some pain at the bx site Allergies aspirin [ASPIRIN] Allergy (Unknown, Verified 11/15/24 13:33) ANAPHYLAXIS HPI Comments Details: Patient presents with her son and granddaughter. Status post biopsy of right lower quadrant abdominal wall mass consistent with endometrioma. [facility] Medical History Screening examination for infectious disease Asthma Asthma exacerbation Surgical History History of section Family History Mother Rheumatoid arthritis Hypertension Father Hypertension Diabetes mellitus Maternal Grandmother Uterine cancer Social History Housing: Apartment Unable to assess alcohol history related to: Unknown Alcohol intake: former Patient Tobacco Use Status: Former Tobacco user e-Cigarette/Vaping Use: Never Used Second Hand Smoke Exposure: No service: No Current occupational status: unemployed Cognitive needs: No Hearing needs: No Vision needs: No Physical Exam Vital Signs: BMI result Body Mass Index 25.2 Chest Other: Chest breath sounds bilaterally, HS 1 in 2 GI Other: Status quo. Right lower quadrant tenderness. Deep palpation ;palpable mass very tender. Ecchymosis over biopsy site Assessment & Plan Assessment & Plan (1) Endometrioma: Code(s): N80.129 - Deep endometriosis of ovary, unspecified ovary Category: Surgical (2) Abdominal wall mass: Code(s): R22.2 - Localized swelling, mass and lump, trunk Category: Surgical Plan Extensive discussion was had with the patient regarding the risks, benefits, and alternatives of excision of the abdominal wall endometrioma which included but not limited to bleeding, infection, recurrence, numbness, pain, scarring, abdominal wall mesh requirement should the fascia be involved and the patient wishes to proceed. All questions answered. Arrangements were made for this on a day which is convenient for her. Coding Level of Care Code Est Pt Level 5 (84558) Diagnoses Endometrioma N80.129 Abdominal wall mass R22.2
== END 2024-11-15 13:53 | disposition home or self-care (01) ==
LOC: HO.HGS 13:30
PROVIDERS: PCP Internal Medicine; Visit Provider Surgery
DX: N80.121 Deep endometriosis of right ovary (principal); R22.2 Localized swelling, mass and lump, trunk
CPT/HCPCS: 99214

== ENCOUNTER → 2024-11-15 13:29 | Outpatient (BNVA) | payer OTHER, SELFPAY | PROVIDERS: PCP Internal Medicine; Visit Provider Surgery | DX: N80.121 Deep endometriosis of right ovary (principal); R22.2 Localized swelling, mass and lump, trunk | CPT/HCPCS: 99212 ==

== ENCOUNTER 2025-02-01 10:30 | Outpatient (AMB) | payer OTHER, SELFPAY ==
--- NOTE | 2025-02-01 10:55 | MHC.OFFVIS ---
Vital Signs 02/01/25 11:03 Height 5 ft 2 in Weight 136 lb BMI 24.9 BP 130/63 Blood Pressure Location Rt brachial Position Sitting Pulse 80 Intake Visit Reasons: Abdominal wall endometrioma Intake Note: Patient previously seen by Dr. Arias for abdominal wall mass. Patient c/o: on and off pain. Bothersome with pressure from clothing. Biopsy: right lower quadrant mass, needle core biopsy (11-07-2024): Endometriosis Defense Analyst Required: No Accompanied by: Rupesh Rojas Allergies aspirin (ASPIRIN) Allergy (Severe, Verified 02/01/25 11:00) ANAPHYLAXIS Medication List - Last Reconciled 02/01/25 by Kennedy Granados MD acetaminophen 500 mg PO Q6H PRN albuterol sulfate 2.5 mg (3 mL) inhalation Q4-6H PRN albuterol sulfate 90 mcg/actuation (Ventolin HFA) 2 puffs PO Q6H PRN ibuprofen 800 mg PO Q8H PRN tizanidine 4 mg PO TID PRN HPI HPI Abdominal wall endometrioma: Details: She is here for follow-up for endometrioma on the right lower abdominal wall. She has had pain on this area for about 19 years now. She says this started after she had a . She has been also noticing this tender lump for several months. She actually has seen Dr. Arias for this year. She had needle biopsy done for the mass and this shows an endometrioma She says that she continues to have the pain in the area. She denies GI complaints [facility] Medical History (Updated 02/01/25 @ 11:30 by Kennedy Granados MD) Endometriosis of anterior abdominal wall Seropositive rheumatoid arthritis Polyarthralgia Hepatitis C Asthma Surgical History History of section Family History Mother Rheumatoid arthritis Hypertension Father Hypertension Diabetes mellitus Maternal Grandmother Uterine cancer Social History Housing: Apartment Unable to assess alcohol history related to: Unknown Alcohol intake: former Patient Tobacco Use Status: Former Tobacco user e-Cigarette/Vaping Use: Never Used Second Hand Smoke Exposure: No service: No Current occupational status: unemployed Cognitive needs: No Hearing needs: No Vision needs: No Review of Systems Const Denies chills and Denies fever(s) Card Denies chest pain, Denies dyspnea and Denies dyspnea on exertion Resp Denies cough, Denies dyspnea and Denies dyspnea on exertion GI Denies hematochezia and Denies change in bowel habits Denies hematuria Musc Denies back pain and Denies limited range of motion Neuro Denies focal weakness and Denies convulsions Psych Denies depression and Denies mood swings Physical Exam Vital Signs: Last Vital Signs Pulse 80 02/01/25 11:03 BP 130/63 02/01/25 11:03 BMI result Body Mass Index 24.9 Const General: comfortable and no acute distress Orientation/consciousness: patient oriented x3 Neck Neck: Yes no lymphadenopathy Resp Auscultation: clear to auscultation bilaterally Cardio Rhythm: regular rhythm GI Other: Large vague mass in the abdominal wall on the right lower abdomen, not well-defined, not mobile, probably about 5-6 cm Palpation (GI): Soft to palpation, nontender and no guarding Neuro General: patient oriented x3 Assessment & Plan Assessment & Plan (1) Endometriosis of anterior abdominal wall: Code(s): N80.C19 - Endometriosis of the anterior abdominal wall, unspecified depth Category: Medical Plan: She has what appears to be a large endometrioma of the anterior abdominal wall in the right lower quadrant. I have reviewed her CAT scan for this and this shows the large mass which seems to encompass the entire rectus muscle. I explained to her that to remove this completely would likely require reconstruction abdominal wall as the entire area has to be removed with a subsequent defect of the abdominal wall. I told her that because of the complexity of the repair, I will have to refer her to a surgeon in a tertiary hospital. I will assist her with having this procedure done. She understands and is comfortable with this plan. Her was with her during the visit. Coding Level of Care Code Est Pt Level 3 (58083) Diagnoses Endometriosis of anterior abdominal wall N80.C19
[2025-02-01 11:03] VITALS: BP 130/63; PULSE 80; BMI 24.9
== END 2025-02-01 11:30 | disposition home or self-care (01) ==
LOC: HO.HGS 10:31
PROVIDERS: PCP Internal Medicine; Visit Provider Surgery
DX: N80.C19 Endometriosis of the anterior abdominal wall, unspecified depth (principal)
CPT/HCPCS: 99213

== ENCOUNTER → 2025-02-01 10:30 | Outpatient (BNVA) | payer OTHER, SELFPAY | PROVIDERS: PCP Internal Medicine; Visit Provider Surgery | DX: N80.C19 Endometriosis of the anterior abdominal wall, unspecified depth (principal) | CPT/HCPCS: 99212 ==

== ENCOUNTER 2025-03-02 13:38 | Outpatient (REF) | payer OTHER, SELFPAY ==
[2025-03-02 14:30] LABS: Alanine Aminotransferase 14 U/L (0-31); Albumin Level 4.3 g/dL (3.5-5.0); Alkaline Phosphatase 78 U/L (39-117); Aspartate Amino Transferase 18 U/L (5-31); Total Protein 7.3 g/dL (6.5-8.0)
[2025-03-03 16:38] LABS: HCV Log PCR <1.18 NOT DETECTED Log IU/mL (NOT DETECTED); HepC Viral Load <15 NOT DETECTED IU/mL (NOT DETECTED)
== END 2025-03-02 13:39 | disposition home or self-care (01) ==
LOC: HO.LAB 13:38
PROVIDERS: PCP Internal Medicine; Visit Provider Internal Medicine
DX: B18.2 Chronic viral hepatitis C (principal); R74.01 Elevation of levels of liver transaminase levels
CPT/HCPCS: 36415; 80076; 87522

== ENCOUNTER 2025-04-21 12:28 | Outpatient (REF) | payer OTHER, SELFPAY ==
[2025-04-21 13:45] LABS: Alanine Aminotransferase 12 U/L (0-31); Albumin Level 4.3 g/dL (3.5-5.0); Alkaline Phosphatase 72 U/L (39-117); Aspartate Amino Transferase 20 U/L (5-31); Total Protein 7.4 g/dL (6.5-8.0)
[2025-04-23 15:23] LABS: HCV Log PCR <1.18 NOT DETECTED Log IU/mL (NOT DETECTED); HepC Viral Load <15 NOT DETECTED IU/mL (NOT DETECTED)
== END 2025-04-21 12:29 | disposition home or self-care (01) ==
LOC: HO.LAB 12:28
PROVIDERS: PCP Internal Medicine; Visit Provider Internal Medicine
DX: B18.2 Chronic viral hepatitis C (principal)
CPT/HCPCS: 36415; 80076; 87522